=== PATIENT | female | born 1975 | race Caucasian/White ===

== ENCOUNTER → 2020-07-12 | Outpatient (CLI) | payer OTHER ==
[2020-07-12 16:21] LABS: BASO # 0.1 10^3/uL (0.0-0.2); BASO % 0.5 % (0.0-1.0); EOS # 0.1 10^3/uL (0.0-0.5); HEMATOCRIT 44.9 % (36.0-47.0); HEMOGLOBIN 15.2 g/dl (12.0-15.5); LYMPH # 3.4 10^3/uL (1.5-5.0); LYMPH % 25.8 % (24.0-44.0); MEAN CORPUSCULAR HEMOGLOBIN 30.7 pg (27.0-33.0); MEAN CORPUSCULAR HGB CONC 33.9 g/dl (32.0-36.5); MEAN CORPUSCULAR VOLUME 90.7 fl (80.0-96.0); MONO # 1.3 10^3/uL (0.0-0.8); MONO % 9.7 % (0.0-5.0); NEUTROPHILS # 8.2 10^3/uL (1.5-8.5); NEUTROPHILS % 62.6 % (36.0-66.0); PLATELET COUNT, AUTOMATED 414 10^3/uL (150-450); RED BLOOD COUNT 4.95 10^6/uL (4.00-5.40); WHITE BLOOD COUNT 13.1 10^3/uL (4.0-10.0)
[2020-07-12 17:06] LABS: ALBUMIN 3.5 GM/DL (3.2-5.2); ALT/SGPT 39 U/L (12-78); BILIRUBIN,TOTAL 0.4 MG/DL (0.2-1.0); BLOOD UREA NITROGEN 10 MG/DL (7-18); CALCIUM LEVEL 9.2 MG/DL (8.5-10.1); CARBON DIOXIDE LEVEL 28 MEQ/L (21-32); CHLORIDE LEVEL 104 MEQ/L (98-107); CK-MB VALUE MASS 1.7 NG/ML (<3.6); CPK CREATINE PHOSPHOKINASE 260 U/L (26-192); CREATININE FOR GFR 0.69 MG/DL (0.55-1.30); FREE T4 0.86 NG/DL (0.76-1.46); GLOMERULAR FILTRATION RATE > 60.0 (>58); GLUCOSE, FASTING 157 MG/DL (70-100); MB/CK RELATIVE INDEX 0.65 (< OR =4); POTASSIUM SERUM 4.6 MEQ/L (3.5-5.1); SODIUM LEVEL 138 MEQ/L (136-145); TOTAL PROTEIN 7.4 GM/DL (6.4-8.2); TROPONIN I < 0.02 NG/ML (< 0.10)
[2020-07-12 22:23] LABS: HEMOGLOBIN A1c 7.3 %
--- NOTE | 2020-09-07 11:21 | REP ---
INDICATION: CHEST PAIN, DIZZINES, GIDDINESS AND OTHER FATIGUE COMPARISON: None. TECHNIQUE: PA and lateral. FINDINGS: The mediastinum and cardiac silhouette are normal. The lung garcia are clear and without acute consolidation, effusion, or pneumothorax. The skeletal structures are intact and normal. IMPRESSION: No acute cardiopulmonary process. <Electronically signed by Damion Medrano > 09/07/20 [id number]
== END ==
LOC: M WUC 14:15
PROVIDERS: ATTEND Physician Assistant
DX: R07.9 Chest pain, unspecified (principal); R42 Dizziness and giddiness; R53.83 Other fatigue

== ENCOUNTER → 2020-11-02 | Outpatient (REF) | payer OTHER ==
[2020-11-02 20:17] LABS: ALBUMIN 3.5 GM/DL (3.2-5.2); ALT/SGPT 49 U/L (12-78); BILIRUBIN,TOTAL 0.2 MG/DL (0.2-1.0); BLOOD UREA NITROGEN 14 MG/DL (7-18); CALCIUM LEVEL 8.9 MG/DL (8.5-10.1); CARBON DIOXIDE LEVEL 33 MEQ/L (21-32); CHLORIDE LEVEL 98 MEQ/L (98-107); CHOLESTEROL LEVEL 232 MG/DL (<200); CHOLESTEROL RISK RATIO 5.948 (<5); CREATININE FOR GFR 0.71 MG/DL (0.55-1.30); GLOMERULAR FILTRATION RATE > 60.0 (>58); GLUCOSE, FASTING 201 MG/DL (70-100); HDL CHOLESTEROL 39 MG/DL (>40); NON-HDL-C 193 MG/DL; POTASSIUM SERUM 4.8 MEQ/L (3.5-5.1); SODIUM LEVEL 135 MEQ/L (136-145); TOTAL PROTEIN 7.3 GM/DL (6.4-8.2); TRIGLYCERIDES LEVEL 805 MG/DL (<150)
== END ==
LOC: M LAB REF 19:06
PROVIDERS: ATTEND Family Medicine Addiction Medicine
DX: Z00.00 Encounter for general adult medical examination without abnormal findings (principal); E07.9 Disorder of thyroid, unspecified

== ENCOUNTER → 2020-11-06 | Outpatient (REF) | payer OTHER | LOC: M WUC 10:03 | PROVIDERS: ATTEND Physician Assistant | DX: J02.9 Acute pharyngitis, unspecified (principal) ==

== ENCOUNTER 2020-11-22 10:12 | Inpatient (IN) | payer OTHER ==
[~2020-11-22] VITALS: Ht 162.6 cm; Wt 93.4 kg
[2020-11-22] MEDS ORDERED: PREG100C PO (10:37)
[2020-11-22] MEDS ORDERED: APPL300T4 PO (10:37)
[2020-11-22] MEDS ORDERED: OXYC-517 PO (10:37)
[2020-11-22] MEDS ORDERED: ONETAB35 PO (10:37)
[2020-11-22] MEDS ORDERED: NS 1,000 ML IV ONE ×2 (11:45→14:00)
[2020-11-22 12:31] LABS: BASO # 0.1 10^3/uL (0.0-0.2); BASO % 0.8 % (0.0-1.0); EOS # 0.1 10^3/uL (0.0-0.5); EOS % 1.1 % (0.0-3.0); HEMATOCRIT 44.8 % (36.0-47.0); HEMOGLOBIN 15.3 g/dl (12.0-15.5); LYMPH # 3.6 10^3/uL (1.5-5.0); MEAN CORPUSCULAR HEMOGLOBIN 29.8 pg (27.0-33.0); MEAN CORPUSCULAR HGB CONC 34.2 g/dl (32.0-36.5); MEAN CORPUSCULAR VOLUME 87.2 fl (80.0-96.0); MONO # 0.9 10^3/uL (0.0-0.8); MONO % 8.3 % (0.0-5.0); NEUTROPHILS # 5.9 10^3/uL (1.5-8.5); NEUTROPHILS % 55.4 % (36.0-66.0); PLATELET COUNT, AUTOMATED 375 10^3/uL (150-450); RED BLOOD COUNT 5.14 10^6/uL (4.00-5.40); WHITE BLOOD COUNT 10.6 10^3/uL (4.0-10.0)
[2020-11-22 12:57] LABS: RSV AMPLIFICATION NEGATIVE (NEGATIVE)
[2020-11-22 12:59] LABS: ALBUMIN 3.9 GM/DL (3.2-5.2); ALT/SGPT 81 U/L (12-78); BILIRUBIN,DIRECT 0.1 MG/DL (0.0-0.2); BILIRUBIN,TOTAL 0.6 MG/DL (0.2-1.0); BLOOD UREA NITROGEN 13 MG/DL (7-18); CALCIUM LEVEL 9.6 MG/DL (8.5-10.1); CARBON DIOXIDE LEVEL 27 MEQ/L (21-32); CHLORIDE LEVEL 98 MEQ/L (98-107); CK-MB VALUE MASS < 1.0 NG/ML (<3.6); CPK CREATINE PHOSPHOKINASE 97 U/L (26-192); CREATININE FOR GFR 0.86 MG/DL (0.55-1.30); GLOMERULAR FILTRATION RATE > 60.0 (>58); GLUCOSE, FASTING 482 MG/DL (70-100); LIPASE 178 U/L (73-393); MB/CK RELATIVE INDEX 1.03 (< OR =4); POTASSIUM SERUM 4.1 MEQ/L (3.5-5.1); SODIUM LEVEL 132 MEQ/L (136-145); TROPONIN I < 0.02 NG/ML (< 0.10)
[2020-11-22] MEDS ORDERED: ISOVUE-370 76% 100ML VIAL As Ordered ONE (13:15)
--- NOTE | 2020-11-22 13:38 | REP ---
INDICATION: Abdominal Pain COMPARISON: 07/12/2020 TECHNIQUE: PA and lateral. FINDINGS: The mediastinum and cardiac silhouette are normal. Small area of linear platelike atelectasis in the left mid lung zone versus scarring requires correlation. No further consolidation, effusion, or pneumothorax. Skeletal structures intact. IMPRESSION: Questionable area of linear atelectasis versus scarring in the left mid lung zone. No further significant consolidation or effusion. <Electronically signed by Damion Medrano > 11/22/20 [id number]
[2020-11-22 13:40] LABS: FREE T4 1.16 NG/DL (0.76-1.46)
[2020-11-22 13:43] LABS: HEMOGLOBIN A1c 12.1 %
--- NOTE | 2020-11-22 13:58 | REP ---
INDICATION: diffuse abd pain. COMPARISON: None TECHNIQUE: Axial contrast-enhanced images from the lung bases to the pubic symphysis using 100 cc Isovue 370 intravenous contrast material. Coronal and sagittal reformations obtained. This CT examination was performed using the following dose reduction techniques: Automated exposure control, adjustment of mA and/or kv according to the patient's size, and the use of iterative reconstruction technique. FINDINGS: Marked hepatomegaly and diffuse hepatosteatosis is appreciated without focal hepatic lesion identified. 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 Pancreas, gallbladder, bilateral adrenal glands and kidneys are normal. The enteric system including stomach, small, and large bowel appears normal. No evidence for obstruction or acute inflammatory process. Normal terminal ileum and appendix are identified in the right lower quadrant. Few scattered sigmoid diverticula noted without acute diverticulitis. Pelvis demonstrates normal bladder and evidence for prior hysterectomy. No ascites. No free air. No intraperitoneal or retroperitoneal adenopathy. Abdominal aorta and vasculature appear normal. Musculoskeletal structures are intact and without acute osseous abnormality. Few left inguinal lymph nodes are prominent and measure up to 22 mm. IMPRESSION: 1. Marked hepatomegaly and hepatosteatosis without focal liver lesion. 2. Two prominent lymph nodes in the left groin are nonspecific. 3. No further acute abdominopelvic pathology appreciated. No ascites, focal inflammatory stranding, or free air. <Electronically signed by Damion Medrano > 11/22/20 [id number]
[2020-11-22] MEDS ORDERED: HumuLIN R (REGULAR) INSULIN (NovoLIN R) **100U/ML** PER UNIT IV ONE (14:00)
[2020-11-22 14:04] LABS: AMPHETAMINES LEVEL URINE NEGATIVE (NEGATIVE); BARBITURATES URINE NEGATIVE (NEGATIVE); BENZODIAZEPINES URINE NEGATIVE (NEGATIVE); CANNABINOIDS URINE NEGATIVE (NEGATIVE); COCAINE METABOLITE URINE NEGATIVE (NEGATIVE); METHADONE URINE NEGATIVE (NEGATIVE); OPIATES URINE NEGATIVE (NEGATIVE); PHENCYCLIDINE URINE NEGATIVE (NEGATIVE)
[2020-11-22 15:38] LABS: VENOUS BASE EXCESS -2.9 (-2.0-2.0); VENOUS HCO3 19.5 MEQ/L (23.0-27.0); VENOUS O2 SATURATION 98.9 % (60.0-80.0); VENOUS PARTIAL PRESSURE CO2 28.4 mmHg (38.0-50.0); VENOUS PARTIAL PRESSURE O2 146.4 mmHg (30.0-50.0); VENOUS PH 7.455 UNITS (7.330-7.430); VENOUS STANDARD HCO3 22.1 MEQ/L; VENOUS TOTAL CO2 20.4 MEQ/L (24.0-28.0)
[2020-11-22 15:59] LABS: ACETONE/KETONE 1.78 MG/DL (<2.81)
[2020-11-22] MEDS ORDERED: PANT-23 PO (16:09)
[2020-11-22] MEDS ORDERED: ATOR40TA75 PO (16:09)
[2020-11-22] MEDS ORDERED: IBUP1TAB6 PO (16:09)
[2020-11-22] MEDS ORDERED: GLUCOSE 4GM CHEW TABLET PO PRN (17:00)
[2020-11-22] MEDS ORDERED: DEXTROSE 50% 50 ML SYRINGE IV PRN (17:00)
[2020-11-22] MEDS ORDERED: GLUCAGON INJ 1MG VIAL SC PRN (17:00)
[2020-11-22] MEDS: LR 1,000 ML IV SCH ×2 (17:26→22:27)
--- NOTE | 2020-11-22 17:42 | ECGEPIP ---
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
--- NOTE | 2020-11-22 18:02 | HPE ---
HISTORY AND PHYSICAL DATE OF ADMISSION: 11/22/2020 PRINCIPAL DIAGNOSIS: Type 2 diabetes with dehydration. HISTORY: Nunu Barnhart is a 45-year-old patient who is a patient of Chintan Chou MD, at [facility]. She was actually diagnosed with type 2 diabetes on 07/12/20. She had an A1c of 7.3% and a fasting blood sugar of 157, which would establish a diagnosis of type 2 diabetes. She claims to be unaware of this diagnosis. She presented to the emergency room with polyuria, polydipsia, fatigue, dizziness, and visual disturbance. Her random blood sugar was 482 and hemoglobin A1c has gone from 7.3 in June up to 12.1%. She has a mild lactic acidemia, 2.4. She is not in DKA. Her bicarbonate is normal. Her blood gas is unremarkable. Serum ketones are normal. PAST MEDICAL HISTORY: 1. Hyperlipidemia. 2. Post-traumatic stress disorder. 3. Fibromyalgia. 4. Chronic pain syndrome. 5. Gastroesophageal reflux disease. 6. She had several hospitalizations when she was living [place] and I do not have access to those records. She states that she was admitted for pneumonia, abdominal pain, and then admitted for COVID-19 infection in March that manifested primarily through pneumonia. SOCIAL HISTORY: She is unmarried, smokes pack of cigarettes a day, denies any alcohol use. FAMILY HISTORY: She is adopted and does not know her medical history. MEDICATIONS: 1. Atorvastatin 40 mg daily. 2. Folic acid with multivitamin one daily. 3. Ibuprofen p.r.n. 4. Oxycodone 5 mg t.i.d. 5. Lyrica 100 mg t.i.d. 6. Protonix 40 mg daily. ALLERGIES: SULFA. REVIEW OF SYSTEMS: As above, otherwise negative. PHYSICAL EXAMINATION: VITAL SIGNS: 133/71, pulse 83, respiratory rate 18, 02 saturation 97%, temperature 97.2 degrees. GENERAL APPEARANCE: Well-developed, well-nourished, obese, resting comfortably in bed. HEENT: Pupils equal and reactive to light; unremarkable with the limits of mask. NECK: Supple. Thyroid is mildly enlarged, no dominant nodule. LUNGS: Clear. HEART: Regular rhythm without murmur. ABDOMEN: Soft, obese, nontender, no masses. EXTREMITIES: No clubbing, cyanosis, or edema. Normal strength in the arms and the legs. LABORATORY: Ketones are normal. Toxicology screen is negative. Sodium 132 (corrects to normal for hyperglycemia), potassium 4.1, BUN 13, creatinine 0.8, random glucose 482, hemoglobin A1c 12.1%, lactic acid 2.4. Thyroid function test 1.5, free T4 1.1. Lipase normal. White count 10.1, hemoglobin 15, platelets 370. ABG 7.45/28/146. Urinalysis showed 3+ glucose. COVID test is negative. IMPRESSION: 1. Newly diagnosed type 2 diabetes. She has actually had diabetes since at least June of 2020 but it has been untreated. She will be admitted to a medical floor, rehydrated, started on sliding scale insulin coverage with a dose of basal insulin at bedtime. Once her pancreas has recovered, she could start oral agent, either while in the hospital or as an outpatient. Metformin will be the typical first choice. We discussed that she will probably need insulin therapy for several months while her pancreas recovers from this severe hyperglycemia, then, potentially her primary care provider could transition her to an oral regimen. Consistent carbohydrate diet ordered. IV fluids ordered for hydration. 2. Fatty liver. CTA today showed marked fatty liver. Continue her atorvastatin. Of course, the weight loss was discussed. 3. Tobacco abuse. Smoking cessation was discussed with the patient. 4. Chronic pain syndrome. Continue her current regimen.
[2020-11-22] MEDS: HumaLOG INSULIN (NovoLOG) PER UNIT SC SCH ×2 (18:03→22:27)
[2020-11-22] MEDS: PERCOCET 5MG/325MG TAB PO PRN (20:13)
[2020-11-22 21:50] VITALS: BP 164/91
[2020-11-22] MEDS: PREGABALIN 100 MG CAP (LYRICA) PO SCH (22:26)
[2020-11-22] MEDS: LEVEMIR (INSULIN DETEMIR) 1 UNITS/0.01ML SC SCH (22:27)
[2020-11-23 02:00] VITALS: BP 128/67
[2020-11-23] MEDS: LR 1,000 ML IV SCH (04:32)
[2020-11-23 06:00] VITALS: BP 124/84
[2020-11-23 07:22] LABS: HEMOGLOBIN 13.4 g/dl (12.0-15.5); MEAN CORPUSCULAR HEMOGLOBIN 29.6 pg (27.0-33.0); MEAN CORPUSCULAR HGB CONC 33.5 g/dl (32.0-36.5); MEAN CORPUSCULAR VOLUME 88.5 fl (80.0-96.0); PLATELET COUNT, AUTOMATED 329 10^3/uL (150-450); RED BLOOD COUNT 4.52 10^6/uL (4.00-5.40); WHITE BLOOD COUNT 9.9 10^3/uL (4.0-10.0)
[2020-11-23 07:43] LABS: BLOOD UREA NITROGEN 11 MG/DL (7-18); CALCIUM LEVEL 8.5 MG/DL (8.5-10.1); CARBON DIOXIDE LEVEL 28 MEQ/L (21-32); CHLORIDE LEVEL 105 MEQ/L (98-107); CREATININE FOR GFR 0.63 MG/DL (0.55-1.30); GLOMERULAR FILTRATION RATE > 60.0 (>58); GLUCOSE, FASTING 262 MG/DL (70-100); POTASSIUM SERUM 3.9 MEQ/L (3.5-5.1); SODIUM LEVEL 138 MEQ/L (136-145)
[2020-11-23] MEDS: HumaLOG INSULIN (NovoLOG) PER UNIT SC SCH ×4 (08:51→20:29)
[2020-11-23] MEDS: PREGABALIN 100 MG CAP (LYRICA) PO SCH ×3 (08:51→20:28)
[2020-11-23] MEDS: PANTOPRAZOLE 40MG TAB (PROTONIX) PO SCH (08:51)
[2020-11-23] MEDS: ATORVASTATIN 20 MG TAB PO SCH (08:52)
[2020-11-23] MEDS: PERCOCET 5MG/325MG TAB PO PRN ×2 (08:52→15:12)
[2020-11-23] MEDS: ENOXAPARIN 40MG/0.4ML SYRINGE (J1650 PER 10MG) SC SCH (08:52)
[2020-11-23 10:00] VITALS: BP 163/87
--- NOTE | 2020-11-23 11:06 | IPN ---
PROGRESS NOTE DATE: 11/23/2020 SUBJECTIVE: Nunu is seen in [address] [facility]. She was admitted with diabetes out of control. She is responding well to insulin therapy. She is currently receiving diabetic teaching. She feels much better than she did yesterday. Her p.o. intake is fine. I am stopping her IV fluids today. OBJECTIVE: VITAL SIGNS: Stable. LUNGS: Clear. HEART: Rhythm regular. ABDOMEN: Soft and nontender. EXTREMITIES: No peripheral edema. LABORATORY DATA: Blood sugar is in the mid 200s now. Electrolytes unremarkable. CBC unremarkable. IMPRESSION/PLAN: 1. Diabetes, newly diagnosed. She had a hemoglobin A1c and fasting blood sugar that met diagnostic criteria 07/12/2020, but she was not made aware of this; so now, she has out of control diabetes with a hemoglobin A1c of 12%. She will need insulin therapy upon discharge. We will start metformin 500 mg b.i.d. to complement her insulin. Continue basal insulin 10 units at bedtime and sliding scale insulin before meals and at bedtime. She will be stable for discharge tomorrow. 2. Hyperlipidemia. Continue atorvastatin 40 mg daily. 3. Chronic pain syndrome. Continue her oxycodone and Lyrica. Anticipate discharge tomorrow. Nursing staff made aware and will work on diabetic teaching today.
[2020-11-23] MEDS: metFORMIN (GLUCOPHAGE) 500 MG TAB PO SCH ×2 (12:17→17:27)
[2020-11-23 14:00] VITALS: BP 125/68
[2020-11-23] MEDS ORDERED: FLUCONAZOLE 50MG TABLET PO ONE (15:00)
[2020-11-23 18:00] VITALS: BP 129/70
[2020-11-23] MEDS: LEVEMIR (INSULIN DETEMIR) 1 UNITS/0.01ML SC SCH (20:29)
[2020-11-23 22:00] VITALS: BP 130/89
[2020-11-24 02:00] VITALS: BP 140/86
[2020-11-24] MEDS: PERCOCET 5MG/325MG TAB PO PRN ×2 (02:16→08:56)
[2020-11-24 06:00] VITALS: BP 136/78
[2020-11-24 07:07] LABS: HEMATOCRIT 39.5 % (36.0-47.0); HEMOGLOBIN 13.1 g/dl (12.0-15.5); MEAN CORPUSCULAR HEMOGLOBIN 29.4 pg (27.0-33.0); MEAN CORPUSCULAR HGB CONC 33.2 g/dl (32.0-36.5); MEAN CORPUSCULAR VOLUME 88.8 fl (80.0-96.0); PLATELET COUNT, AUTOMATED 313 10^3/uL (150-450); RED BLOOD COUNT 4.45 10^6/uL (4.00-5.40); WHITE BLOOD COUNT 10.5 10^3/uL (4.0-10.0)
[2020-11-24 07:34] LABS: BLOOD UREA NITROGEN 11 MG/DL (7-18); CALCIUM LEVEL 8.5 MG/DL (8.5-10.1); CARBON DIOXIDE LEVEL 30 MEQ/L (21-32); CHLORIDE LEVEL 103 MEQ/L (98-107); CREATININE FOR GFR 0.69 MG/DL (0.55-1.30); GLOMERULAR FILTRATION RATE > 60.0 (>58); GLUCOSE, FASTING 225 MG/DL (70-100); POTASSIUM SERUM 4.3 MEQ/L (3.5-5.1); SODIUM LEVEL 138 MEQ/L (136-145)
[2020-11-24] MEDS: metFORMIN (GLUCOPHAGE) 500 MG TAB PO SCH (08:55)
[2020-11-24] MEDS: ENOXAPARIN 40MG/0.4ML SYRINGE (J1650 PER 10MG) SC SCH (08:55)
[2020-11-24] MEDS: PREGABALIN 100 MG CAP (LYRICA) PO SCH (08:56)
[2020-11-24] MEDS: PANTOPRAZOLE 40MG TAB (PROTONIX) PO SCH (08:56)
[2020-11-24] MEDS: ATORVASTATIN 20 MG TAB PO SCH (08:57)
[2020-11-24] MEDS: HumaLOG INSULIN (NovoLOG) PER UNIT SC SCH ×2 (08:58→13:08)
[2020-11-24] MEDS ORDERED: GLUC500T PO (09:19)
[2020-11-24] MEDS ORDERED: INSUHUMDS SC ×2 (09:19)
[2020-11-24] MEDS ORDERED: INSUDET SC (09:19)
[2020-11-24 10:00] VITALS: BP 137/79
[2020-11-24] MEDS ORDERED: PEN1MIS22 SC (10:25)
[2020-11-24] MEDS ORDERED: ALCOPAD25 TOP (10:25)
[2020-11-24] MEDS ORDERED: BLOOKIT21 XX (10:25)
[2020-11-24] MEDS ORDERED: LANC30MI XX (10:25)
[2020-11-24] MEDS ORDERED: GLUC1TES2 XX (10:25)
[2020-11-24] MEDS ORDERED: LEVE1INJ5 SC (10:26)
[2020-11-24] MEDS ORDERED: INSU100I20 SQ (10:26)
[2020-11-24] MEDS ORDERED: RA A EX (10:33)
[2020-11-24] MEDS ORDERED: BASA100I SC (12:43)
[2020-11-24 14:00] VITALS: BP 130/87
[2020-11-24] MEDS ORDERED: NYSTATIN CREAM 15 GM TOP PRN (14:00)
--- NOTE | 2020-11-25 22:47 | DS.PDOC ---
Discharge Summary General Date of Admission Nov 22, 2020 at 16:54 Date of Discharge Nov 24, 2020 Attending Physician: NATALI SUÁREZ DO Discharge Summary PROCEDURES PERFORMED DURING STAY: None ADMITTING DIAGNOSES: 1. Newly diagnosed diabetes mellitus 2. Fatty liver 3. Tobacco abuse 4. Chronic pain syndrome DISCHARGE DIAGNOSES: 1. Newly diagnosed diabetes mellitus 2. Fatty liver 3. Tobacco abuse 4. Chronic pain syndrome COMPLICATIONS/CHIEF COMPLAINT: Diabetes Mellitus Out Of Control.. HISTORY OF PRESENT ILLNESS: Ms. Barnhart is a 45 year old female with PTSD, fibromyalgia, GERD, and chronic pain syndrome who presents for polyuria, polydipsia, fatigue, dizziness, and visual disturbance. Her random blood sugar was 482, but she was not in DKA. Bicarb and ketones are normal. Blood gas was not acidotic. Her lactic acid was elevated at 2.4. HbA1c increased from 7.3% in June to 12.1%. Patient was admitted for hydration and diabetes control. HOSPITAL COURSE: She did well during her hospitalization. Her lactic acid resolved and her blood sugar improved. She was given diabetic education for insulin. She was started on metformin. Today, she felt well. She was still anxious about using insulin and becoming hypoglycemic. Otherwise, she felt ready for discharge and was discharged home. DISCHARGE MEDICATIONS: Please see below. ALLERGIES: Please see below. PHYSICAL EXAMINATION ON DISCHARGE: VITAL SIGNS: Please see below. GENERAL: Comfortable, in no apparent distress HEENT: Head normocephalic, atraumatic, EOMI, sclera clear NECK: Supple CARDIOVASCULAR EXAMINATION: Regular rate and rhythm RESPIRATORY EXAMINATION: Lungs clear to auscultation bilaterally ABDOMINAL EXAMINATION: Soft, nontender, normal bowel sounds EXTREMITIES: No pitting edema bilaterally SKIN: Warm and dry NEUROLOGICAL EXAMINATION: CN 3-12 grossly intact PSYCHIATRIC EXAMINATION: Anxious LABORATORY DATA: Please see below. IMAGING: (Radiologist impression) CT abd/pelvis 11/22/20 1. Marked hepatomegaly and hepatosteatosis without focal liver lesion. 2. Two prominent lymph nodes in the left groin are nonspecific. 3. No further acute abdominopelvic pathology appreciated. No ascites, focal inflammatory stranding, or free air. CXR 11/22/20 Questionable area of linear atelectasis versus scarring in the left mid lung zone. No further significant consolidation or effusion. PROGNOSIS: Good ACTIVITY: As tolerated. DIET: Carbohydrate consistent diet DISCHARGE PLAN: Home DISPOSITION: 01 Home, Self-Care. DISCHARGE INSTRUCTIONS: 1. Follow up with your PCP within 5 days DISCHARGE CONDITION: Stable. Total time spent on discharge planning, discharge summary, and medication reconciliation: 40 minutes. Vital Signs/I&Os Vital Signs Date Time Temp Pulse Resp B/P (MAP) Pulse Ox O2 Delivery O2 Flow Rate FiO2 11/24/20 14:00 98.6 80 17 130/87 (101) 98 Room Air I&O- Last 24 Hours up to 6 AM 11/25/20 06:00 Intake Total 900 ml Output Total 0 ml Balance 900 ml Discharge Medications Scheduled Atorvastatin Calcium (Atorvastatin Calcium) 40 Mg Tablet, 40 MG PO DAILY, (Reported) Blood Sugar Diagnostic (Advanced Glucose Test Strips) 1 Each Strip, 1 STRIP XX ASDIRECTED Clotrimazole (Clotrimazole AF) 28 Gm Cream..g., 1 % EX BID Apply to affected area Insulin Glargine,Hum.rec.anlog (Basaglar Kwikpen U-100) 100 Unit/1 Ml Insuln.pen, 10 UNIT SC QHS Insulin Lispro (Insulin Lispro Jameson Kwikpen) 100 Unit/Ml Ins.pen.hf, 1 UNIT SQ ACHS Follow Sliding Scale protocol Metformin HCl (Glucophage) 500 Mg Tablet, 500 MG PO BID@08,18 Oxycodone HCl (Oxycodone HCl) 5 Mg Tablet, 5 TAB PO TID, (Reported) Pantoprazole Sodium (Pantoprazole Sodium) 40 Mg Tablet.dr, 40 MG PO DAILY, (Reported) Pregabalin (Pregabalin) 100 Mg Capsule, 100 MG PO TID, (Reported) Scheduled PRN Ibuprofen (Ibuprofen) 600 Mg Tablet, 600 MG PO Q8H PRN for PAIN, (Reported) Miscellaneous Medications Cider Vinegar (Apple Cider Vinegar) 300 Mg Tablet, 300 MG PO, (Reported) Folic Acid/Multivit,Iron,[employer] (One Daily For Women Tablet) 1 Each Tablet, 1 TAB PO, (Reported) Allergies Coded Allergies: Sulfa (Sulfonamide Antibiotics) (Verified Adverse Reaction, Intermediate, "Im on fire on the inside", 11/22/20) NATALI SUÁREZ DO Nov 25, 2020 22:47
== END 2020-11-24 15:10 | disposition home or self-care (01) | DRG 420 ==
LOC: M ED 10:12 → M ED INP 16:54 → M MS5PR 21:44
PROVIDERS: ADMIT Family Medicine; ATTEND Internal Medicine
DX: E11.65 Type 2 diabetes mellitus with hyperglycemia (principal); E78.5 Hyperlipidemia, unspecified; F17.200 Nicotine dependence, unspecified, uncomplicated; G89.29 Other chronic pain; K21.9 Gastro-esophageal reflux disease without esophagitis; M79.7 Fibromyalgia; F43.10 Post-traumatic stress disorder, unspecified; Z79.899 Other long term (current) drug therapy; Z79.4 Long term (current) use of insulin; Z88.2 Allergy status to sulfonamides

== ENCOUNTER → 2020-11-28 | Outpatient (REF) | payer OTHER ==
[~2020-11-28] MED LIST: ALCOPAD25 TOP; APPL300T4 PO; ATOR40TA75 PO; BASA100I SC; BLOOKIT21 XX; GLUC1TES2 XX; GLUC500T PO; IBUP1TAB6 PO; INSU100I20 SQ; INSUDET SC; INSUHUMDS SC; LANC30MI XX; LEVE1INJ5 SC; ONETAB35 PO; OXYC-517 PO; PANT-23 PO; PEN1MIS22 SC; PREG100C PO; RA A EX
== END ==
LOC: M LAB REF 16:49
PROVIDERS: ATTEND Family Medicine Addiction Medicine
DX: E55.9 Vitamin D deficiency, unspecified (principal)

== ENCOUNTER 2021-01-19 19:40 | Emergency (ER) | payer OTHER ==
[~2021-01-19] VITALS: Ht 162.6 cm; Wt 97.2 kg
[2021-01-19] MEDS ORDERED: HYDR-3713 (20:04)
[2021-01-19] MEDS ORDERED: PERI12LIQ (20:05)
[2021-01-19] MEDS ORDERED: FARX1TAB3 (20:05)
[2021-01-19] MEDS ORDERED: ONDANSETRON 4MG/2ML VIAL IV ONE (21:10)
[2021-01-19] MEDS ORDERED: MORPHINE 4 MG/ML 1ML VIAL/SYRINGE (J2270) IV ONE ×2 (21:10→22:45)
[2021-01-19] MEDS ORDERED: NS 1,000 ML IV ONE ×2 (21:10→22:45)
[2021-01-19 21:56] LABS: BASO # 0.1 10^3/uL (0.0-0.2); BASO % 0.7 % (0.0-1.0); EOS # 0.2 10^3/uL (0.0-0.5); EOS % 1.2 % (0.0-3.0); HEMATOCRIT 47.6 % (36.0-47.0); HEMOGLOBIN 15.4 g/dl (12.0-15.5); LYMPH # 4.4 10^3/uL (1.5-5.0); LYMPH % 25.1 % (24.0-44.0); MEAN CORPUSCULAR HEMOGLOBIN 29.2 pg (27.0-33.0); MEAN CORPUSCULAR HGB CONC 32.4 g/dl (32.0-36.5); MEAN CORPUSCULAR VOLUME 90.2 fl (80.0-96.0); MONO # 1.6 10^3/uL (0.0-0.8); MONO % 9.3 % (2.0-8.0); NEUTROPHILS # 11.2 10^3/uL (1.5-8.5); NEUTROPHILS % 63.2 % (36.0-66.0); PLATELET COUNT, AUTOMATED 561 10^3/uL (150-450); RED BLOOD COUNT 5.28 10^6/uL (4.00-5.40)
[2021-01-19] MEDS ORDERED: ISOVUE-370 76% 100ML VIAL As Ordered ONE (22:01)
[2021-01-19 22:11] LABS: WHITE BLOOD COUNT 17.6 10^3/uL (4.0-10.0)
[2021-01-19 22:29] LABS: ERYTHROCYTE SEDIMENTATION RATE 18 mm/hr (0-20)
--- NOTE | 2021-01-19 22:35 | REPVR ---
PROCEDURE INFORMATION: Exam: CT Neck With Contrast Exam date and time: 01/19/2021 10:12 PM Age: 46 years old Clinical indication: Pain; Other: Jaw; Additional info: Severe lower jaw pain, 1wk post tooth extraction TECHNIQUE: Imaging protocol: Computed tomography images of the neck with intravenous contrast. Radiation optimization: All CT scans at this facility use at least one of these dose optimization techniques: automated exposure control; mA and/or kV adjustment per patient size (includes targeted exams where dose is matched to clinical indication); or iterative reconstruction. Contrast material: ISOVUE 370; Contrast volume: 75 ml; Contrast route: INTRAVENOUS (IV); COMPARISON: No relevant prior studies available. FINDINGS: Nasopharynx: Unremarkable. Dental: Findings consistent with the history of recent extraction of 2nd mandibular molar tooth on the left. Oropharynx: Unremarkable. No significant tonsillar enlargement. Hypopharynx: Unremarkable. Larynx: Unremarkable. Normal epiglottis. Retropharyngeal space: Unremarkable. Submandibular/Parotid glands: Normal. Glands are normal in size. Thyroid: Normal. No enlarged or calcified nodules. Lymph nodes: Cervical lymph nodes within normal limits. Slight asymmetric enlargement of the left submandibular nodes, likely reactive. Trachea: Visualized trachea is unremarkable. Lungs: Unremarkable as visualized. Bones/joints: Cervical spinal spondylitic changes at the C5-C6 and C6-C7 levels. Cervical facet arthropathy noted. No destructive osseous lesions are seen. Soft tissues: No soft tissue abscess is seen. IMPRESSION: 1. Findings consistent with recent left mandibular molar extraction. 2. No soft tissue abscess or destructive osseous lesion identified. 3. Slight asymmetric enlargement of the left submandibular nodes, likely reactive. Electronically signed by: Emma Bond On 01/19/2021 22:35:20 PM
[2021-01-20] MEDS ORDERED: MORPHINE 2 MG/ML 1ML VIAL (J2270) IV ONE
[2021-01-20] MEDS ORDERED: PERCOCET 5MG/325MG TAB PO ONE
[2021-01-20 00:50] LABS: BASO # 0.1 10^3/uL (0.0-0.2); BASO % 0.5 % (0.0-1.0); EOS # 0.2 10^3/uL (0.0-0.5); EOS % 1.3 % (0.0-3.0); HEMATOCRIT 45.6 % (36.0-47.0); HEMOGLOBIN 14.5 g/dl (12.0-15.5); LYMPH # 4.9 10^3/uL (1.5-5.0); LYMPH % 26.7 % (24.0-44.0); MEAN CORPUSCULAR HEMOGLOBIN 29.1 pg (27.0-33.0); MEAN CORPUSCULAR HGB CONC 31.8 g/dl (32.0-36.5); MEAN CORPUSCULAR VOLUME 91.6 fl (80.0-96.0); MONO # 1.7 10^3/uL (0.0-0.8); MONO % 9.2 % (2.0-8.0); NEUTROPHILS # 11.3 10^3/uL (1.5-8.5); NEUTROPHILS % 61.8 % (36.0-66.0); PLATELET COUNT, AUTOMATED 474 10^3/uL (150-450); RED BLOOD COUNT 4.98 10^6/uL (4.00-5.40)
[2021-01-20 00:53] LABS: WHITE BLOOD COUNT 18.2 10^3/uL (4.0-10.0)
[2021-01-20] MEDS ORDERED: OXYCODONE/APAP 5MG/325MG(BULK FOR ED) 1 TABLET PO ONE (01:30)
[2021-01-20 01:50] VITALS: BP 123/67
== END 2021-01-20 01:53 | disposition home or self-care (01) ==
LOC: M ED 19:40
DX: G89.18 Other acute postprocedural pain (principal); K08.89 Other specified disorders of teeth and supporting structures; E11.9 Type 2 diabetes mellitus without complications; F17.200 Nicotine dependence, unspecified, uncomplicated; Z88.2 Allergy status to sulfonamides; Z79.899 Other long term (current) drug therapy
CPT/HCPCS: 70491; 80047; 83605; 84702; 85025; 85652; 86140; 96361; 96374; 96375; 96376; 99283; J2270; J2405; Q9967

== ENCOUNTER → 2021-01-26 | Outpatient (REF) | payer OTHER ==
[~2021-01-26] MED LIST changes: +FARX1TAB3; +HYDR-3713; +PERI12LIQ
[2021-01-26 16:54] LABS: HEMATOCRIT 47.4 % (36.0-47.0); HEMOGLOBIN 15.7 g/dl (12.0-15.5); MEAN CORPUSCULAR HGB CONC 33.1 g/dl (32.0-36.5); MEAN CORPUSCULAR VOLUME 90.6 fl (80.0-96.0); PLATELET COUNT, AUTOMATED 594 10^3/uL (150-450); RED BLOOD COUNT 5.23 10^6/uL (4.00-5.40); WHITE BLOOD COUNT 16.5 10^3/uL (4.0-10.0)
[2021-01-26 17:17] LABS: ALBUMIN 4.1 GM/DL (3.2-5.2); ALT/SGPT 55 U/L (12-78); BILIRUBIN,TOTAL 0.4 MG/DL (0.2-1.0); BLOOD UREA NITROGEN 23 MG/DL (7-18); CALCIUM LEVEL 10.1 MG/DL (8.5-10.1); CARBON DIOXIDE LEVEL 28 MEQ/L (21-32); CHLORIDE LEVEL 107 MEQ/L (98-107); CREATININE FOR GFR 0.73 MG/DL (0.55-1.30); GLOMERULAR FILTRATION RATE > 60.0 (>58); GLUCOSE, FASTING 142 MG/DL (70-100); POTASSIUM SERUM 4.6 MEQ/L (3.5-5.1); SODIUM LEVEL 141 MEQ/L (136-145); TOTAL PROTEIN 7.9 GM/DL (6.4-8.2)
== END ==
LOC: M LAB REF 16:24
PROVIDERS: ATTEND Family Medicine Addiction Medicine
DX: E11.9 Type 2 diabetes mellitus without complications (principal); D72.829 Elevated white blood cell count, unspecified

== ENCOUNTER → 2021-02-07 | Outpatient (REF) | payer OTHER | LOC: M WUC 15:42 | PROVIDERS: ATTEND Physician Assistant | DX: R30.0 Dysuria (principal) ==

== ENCOUNTER 2021-02-15 14:15 | Emergency (ER) | payer OTHER ==
[~2021-02-15] VITALS: Ht 162.6 cm; Wt 95.7 kg
[2021-02-15] MEDS ORDERED: OZEM2INJ (14:36)
[2021-02-15] MEDS ORDERED: BASA100I SC (14:36)
[2021-02-15] MEDS ORDERED: METF10004 PO (14:36)
[2021-02-15] MEDS ORDERED: D 101000 (14:36)
[2021-02-15 15:39] LABS: HEMATOCRIT 48.8 % (36.0-47.0); HEMOGLOBIN 16.3 g/dl (12.0-15.5); MEAN CORPUSCULAR HGB CONC 33.4 g/dl (32.0-36.5); MEAN CORPUSCULAR VOLUME 89.7 fl (80.0-96.0); PLATELET COUNT, AUTOMATED 531 10^3/uL (150-450); RED BLOOD COUNT 5.44 10^6/uL (4.00-5.40); WHITE BLOOD COUNT 15.5 10^3/uL (4.0-10.0)
[2021-02-15 16:14] LABS: ATYPICAL LYMPH 9 % (0-5); LYMPHOCYTES 22 % (16-44); MONOCYTES 5 % (0-5); NEUTROPHILS 63 % (28-66); PLATELET ESTIMATE INCREASED (NORMAL)
[2021-02-15 16:20] LABS: ERYTHROCYTE SEDIMENTATION RATE 34 mm/hr (0-20)
[2021-02-15] MEDS ORDERED: ONDANSETRON 4MG/2ML VIAL IV ONE (16:25)
[2021-02-15] MEDS ORDERED: dexameTHASONE 20MG/5ML VIAL (J1100 PER 1MG) IV ONE (16:25)
[2021-02-15] MEDS ORDERED: NS 1,000 ML IV ONE (16:25)
[2021-02-15] MEDS ORDERED: KETOROLAC 30 MG/ML 1ML VIAL IV ONE (16:25)
[2021-02-15] MEDS ORDERED: ISOVUE-370 76% 100ML VIAL As Ordered ONE (17:00)
[2021-02-15] MEDS ORDERED: MORPHINE 4 MG/ML 1ML VIAL/SYRINGE (J2270) IV ONE (17:25)
--- NOTE | 2021-02-15 17:35 | REPVR ---
PROCEDURE INFORMATION: Exam: CT Neck With Contrast Exam date and time: 02/15/2021 5:07 PM Age: 46 years old Clinical indication: Mass, lump, or swelling in neck; Additional info: Left jaw/neck swollen/pain TECHNIQUE: Imaging protocol: Computed tomography images of the neck with intravenous contrast. Radiation optimization: All CT scans at this facility use at least one of these dose optimization techniques: automated exposure control; mA and/or kV adjustment per patient size (includes targeted exams where dose is matched to clinical indication); or iterative reconstruction. Contrast material: ISOVUE 370; Contrast volume: 75 ml; Contrast route: INTRAVENOUS (IV); COMPARISON: CT Neck with contrast 01/19/2021 10:06 PM FINDINGS: Pharynx: Unremarkable. Dental: Redemonstration of postoperative changes compatible with recent left mandibular molar tooth extraction. No evidence of periodontal abscess. Larynx: Unremarkable. Normal epiglottis. Retropharyngeal space: Unremarkable. Submandibular/Parotid glands: Unremarkable. Thyroid: Unremarkable. No enlarged or calcified nodules. Lymph nodes: No lymphadenopathy. Trachea: Unremarkable. Lungs: Unremarkable as visualized. Bones/joints: No acute osseus lesions or fractures. Soft tissues: Unremarkable. IMPRESSION: Redemonstration of postoperative changes compatible with recent left mandibular molar tooth extraction. No evidence of periodontal abscess. Electronically signed by: Richardson Lewis On 02/15/2021 17:35:33 PM
[2021-02-15] MEDS ORDERED: AMPICILLIN SOD/SULBACTAM SOD 3 GM in D5W MINI-BAG PLUS 100 ML IV ONE (17:45)
[2021-02-15] MEDS ORDERED: KETO10TAB PO (18:22)
[2021-02-15] MEDS ORDERED: AUGM875T28 PO (18:22)
[2021-02-15] MEDS ORDERED: PRED20TA PO (18:22)
[2021-02-15] MEDS ORDERED: DIFL150T PO (18:25)
[2021-02-15 18:41] VITALS: BP 135/77
== END 2021-02-15 18:43 | disposition home or self-care (01) ==
LOC: M ED 14:15
DX: L03.211 Cellulitis of face (principal); Z98.818 Other dental procedure status; E11.9 Type 2 diabetes mellitus without complications; E78.5 Hyperlipidemia, unspecified; K52.9 Noninfective gastroenteritis and colitis, unspecified; K57.30 Diverticulosis of large intestine without perforation or abscess without bleeding; F43.10 Post-traumatic stress disorder, unspecified; F41.9 Anxiety disorder, unspecified; F31.9 Bipolar disorder, unspecified; F17.200 Nicotine dependence, unspecified, uncomplicated; Z88.2 Allergy status to sulfonamides; Z79.899 Other long term (current) drug therapy
CPT/HCPCS: 70491; 80047; 83605; 85025; 85652; 86140; 96361; 96365; 96375; 99284; J1100; J1885; J2270; J2405; Q9967

== ENCOUNTER → 2021-02-22 | Outpatient (CLI) | payer OTHER ==
[~2021-02-22] MED LIST changes: +AUGM875T28 PO; +D 101000; +DIFL150T PO; +KETO10TAB PO; +METF10004 PO; +OZEM2INJ; +PRED20TA PO
[2021-02-22 13:51] LABS: BLOOD UREA NITROGEN 19 MG/DL (7-18); CARBON DIOXIDE LEVEL 23 MEQ/L (21-32); CHLORIDE LEVEL 106 MEQ/L (98-107); CREATININE FOR GFR 0.76 MG/DL (0.55-1.30); GLOMERULAR FILTRATION RATE > 60.0 (>58); GLUCOSE, FASTING 142 MG/DL (70-100); SODIUM LEVEL 139 MEQ/L (136-145)
== END ==
LOC: M LAB 12:28
PROVIDERS: ATTEND Nurse Practitioner Family
DX: E11.65 Type 2 diabetes mellitus with hyperglycemia (principal)

== ENCOUNTER → 2021-06-23 | Outpatient (CLI) | payer OTHER ==
[~2021-06-23] MED LIST changes: +ERGO500029 PO; +FARX1TAB5 PO; +OMEP40CA5 PO
== END ==
LOC: M LABSMTC 10:36
PROVIDERS: ATTEND Anesthesiology
DX: Z01.812 Encounter for preprocedural laboratory examination (principal); Z20.822 Contact with and (suspected) exposure to COVID-19

== ENCOUNTER 2021-06-28 08:11 | Day surgery (SDC) | payer OTHER ==
[~2021-06-28] VITALS: Ht 162.6 cm; Wt 91.6 kg
[~2021-06-28 08:11] MED LIST changes: +LIDOCAINE 2% 100MG/5ML SDV (FOR ANES.) As Ordered ONE; +NS 1,000 ML IV ONE; +OMEP-221 PO; -OMEP40CA5 PO; +propofoL 200 MG/20 ML VIAL As Ordered ONE
--- NOTE | 2021-06-28 09:34 | ROOR ---
Patient Name: Nunu Barnhart Procedure Date: 06/28/2021 9:17 AM Date of : 1975 Age: 46 Room: [facility] Gender: Female Note Status: Finalized Procedure: Upper Endoscopy + Biopsies Indications: Heartburn, Exclusion of Conrad's esophagus Providers: Sang Zarco MD Referring MD: Chintan MUHAMMAD MD Requesting Provider: Medicines: Monitored Anesthesia Care Complications: No immediate complications. Procedure: Pre-Anesthesia Assessment: - The heart rate, respiratory rate, oxygen saturations, blood pressure, adequacy of pulmonary ventilation, and response to care were monitored throughout the procedure. The Endoscope was introduced through the mouth, and advanced to the second part of duodenum. The upper GI endoscopy was accomplished without difficulty. The patient tolerated the procedure well. Findings: The Z-line was variable and was found 35 cm from the incisors. Multiple biopsies were obtained with cold forceps for evaluation to rule out Conrad's Esophagus randomly at the gastroesophageal junction. A medium-sized hiatal hernia was present. No other significant abnormalities were identified in a careful examination of the stomach. The exam of the duodenum was otherwise normal. Impression: - Z-line variable, 35 cm from the incisors. - Medium-sized hiatal hernia. - Multiple biopsies were obtained at the gastroesophageal junction. - The examination was otherwise normal. Recommendation: - Patient has a contact number available for emergencies. The signs and symptoms of potential delayed complications were discussed with the patient. Return to normal activities tomorrow. Written discharge instructions were provided to the patient. - High fiber diet. - Discharge patient to home. - Follow an antireflux regimen. - Continue present medications. - Await pathology results. - Telephone GI clinic for pathology results in 1 week. - Return to referring physician. - The findings and recommendations were discussed with the patient's family. Procedure Code(s): --- Professional --- 99995, Esophagogastroduodenoscopy, flexible, transoral; with biopsy, single or multiple Diagnosis Code(s): --- Professional --- K22.8, Other specified diseases of esophagus K44.9, Diaphragmatic hernia without obstruction or gangrene R12, Heartburn CPT copyright 2019 [employer]. All rights reserved. The codes documented in this report are preliminary and upon service vehicle operator review may be revised to meet current compliance requirements. Sang Zarco MD Sang Zarco MD 06/28/2021 9:33:27 AM Electronically signed by Sang Zarco MD Number of Addenda: 0 Note Initiated On: 06/28/2021 9:17 AM Estimated Blood Loss: Estimated blood loss: none.
[2021-06-28 09:54] VITALS: BP 143/83
== END 2021-06-28 09:33 | disposition home or self-care (01) ==
LOC: M OPP 08:11
PROVIDERS: ATTEND Internal Medicine Gastroenterology
DX: K22.8 Other specified diseases of esophagus (principal); K44.9 Diaphragmatic hernia without obstruction or gangrene; R12 Heartburn; Z79.84 Long term (current) use of oral hypoglycemic drugs; Z79.891 Long term (current) use of opiate analgesic; Z79.899 Other long term (current) drug therapy; Z88.2 Allergy status to sulfonamides

== ENCOUNTER → 2021-07-07 | Outpatient (REF) | payer OTHER ==
[~2021-07-07] MED LIST changes: -LIDOCAINE 2% 100MG/5ML SDV (FOR ANES.) As Ordered ONE; -NS 1,000 ML IV ONE; -propofoL 200 MG/20 ML VIAL As Ordered ONE
[2021-07-07 18:03] LABS: CREATININE, URINE 53.3 MG/DL; MALB URINE SIEMENS 6.9 MG/L; MAU/CREAT RATIO 12.9 MCG/MG (0.0-30.0)
== END ==
LOC: M LAB REF 17:14
PROVIDERS: ATTEND Nurse Practitioner Family
DX: E11.65 Type 2 diabetes mellitus with hyperglycemia (principal)

== ENCOUNTER 2021-12-04 17:28 | Emergency (ER) | payer OTHER ==
[~2021-12-04] VITALS: Ht 162.6 cm; Wt 90.9 kg
[~2021-12-04 17:28] MED LIST changes: -OMEP-221 PO; +OMEP40CA5 PO
[2021-12-04 17:40] VITALS: BP 146/90
== END 2021-12-04 19:51 | disposition left against medical advice (07) ==
LOC: M ED 17:28
DX: Z53.21 Procedure and treatment not carried out due to patient leaving prior to being seen by health care provider (principal)

== ENCOUNTER 2021-12-04 21:47 | Emergency (ER) | payer OTHER ==
[~2021-12-04] VITALS: Ht 162.6 cm; Wt 90.9 kg
[2021-12-04 21:48] VITALS: BP 146/90
== END 2021-12-05 01:03 | disposition left against medical advice (07) ==
LOC: M ED 21:47
DX: Z53.21 Procedure and treatment not carried out due to patient leaving prior to being seen by health care provider (principal)

== ENCOUNTER → 2021-12-10 | Outpatient (REF) | payer OTHER ==
[2021-12-11 12:50] LABS: APPEARANCE, URINE TURBID (CLEAR); BACTERIA, URINE AUTO NEGATIVE (NEGATIVE); BILIRUBIN, URINE AUTO NEGATIVE (NEGATIVE); BLOOD, URINE BLOOD NEGATIVE (NEGATIVE); CALCIUM OXALATE CRYSTALS SMALL; COLOR, URINE YELLOW (YELLOW); GLUCOSE, URINE (UA) AUTO 1+ mg/dL (NEGATIVE); KETONE, URINE AUTO TRACE mg/dL (NEGATIVE); LEUKOCYTE ESTERASE, URINE AUTO NEGATIVE (NEGATIVE); MUCUS, URINE LARGE (NEGATIVE); NITRITE, URINE AUTO NEGATIVE (NEGATIVE); PROTEIN, URINE AUTO 1+ mg/dL (NEGATIVE); RBC, URINE AUTO 9 /HPF (0-3); SPECIFIC GRAVITY URINE AUTO 1.031 (1.002-1.035); SQUAMOUS EPITHELIAL CELL UR AU 3 /HPF (0-6); UROBILINOGEN, URINE AUTO 0.2 mg/dL (0.0-2.0); WBC, URINE AUTO 0 /HPF (0-3)
== END ==
LOC: M LAB REF 12:14
PROVIDERS: ATTEND Physician Assistant Medical
DX: R30.0 Dysuria (principal)

== ENCOUNTER 2022-09-05 00:18 | Observation (INO) | payer OTHER ==
[~2022-09-05] VITALS: Ht 164.5 cm; Wt 88.6 kg
[~2022-09-05 00:18] MED LIST changes: -OZEM2INJ; +OZEM2INJ SC
[2022-09-05] MEDS ORDERED: ONDANSETRON 4MG 2ML VIAL IV ONE (01:35)
[2022-09-05 01:55] LABS: BASO # 0.1 10^3/uL (0.0-0.2); BASO % 0.5 % (0.0-1.0); EOS # 0.1 10^3/uL (0.0-0.5); EOS % 0.6 % (0.0-3.0); HEMATOCRIT 42.3 % (36.0-47.0); HEMOGLOBIN 14.4 g/dl (12.0-15.5); LYMPH # 3.8 10^3/uL (1.5-5.0); LYMPH % 17.8 % (24.0-44.0); MEAN CORPUSCULAR HEMOGLOBIN 29.8 pg (27.0-33.0); MEAN CORPUSCULAR VOLUME 87.6 fl (80.0-96.0); MONO % 8.9 % (2.0-8.0); NEUTROPHILS # 15.5 10^3/uL (1.5-8.5); NEUTROPHILS % 71.8 % (36.0-66.0); PLATELET COUNT, AUTOMATED 487 10^3/uL (150-450); RED BLOOD COUNT 4.83 10^6/uL (4.00-5.40); WHITE BLOOD COUNT 21.5 10^3/uL (4.0-10.0)
[2022-09-05] MEDS ORDERED: KETOROLAC 30 MG/ML 1ML VIAL IV ONE (02:00)
[2022-09-05 02:05] LABS: MONO # 1.9 10^3/uL (0.0-0.8)
[2022-09-05 02:08] LABS: INR 0.94; PROTHROMBIN TIME 12.8 SECONDS (12.5-14.5)
[2022-09-05 02:35] LABS: ALBUMIN 3.8 GM/DL (3.2-5.2); ALT/SGPT 24 U/L (12-78); AMYLASE 32 U/L (25-115); BILIRUBIN,DIRECT < 0.1 MG/DL (0.0-0.2); BILIRUBIN,TOTAL 0.3 MG/DL (0.2-1.0); BLOOD UREA NITROGEN 18 MG/DL (7-18); CALCIUM LEVEL 9.7 MG/DL (8.5-10.1); CARBON DIOXIDE LEVEL 25 MEQ/L (21-32); CHLORIDE LEVEL 107 MEQ/L (98-107); CK-MB VALUE MASS 1.1 NG/ML (<3.6); CREATININE FOR GFR 0.78 MG/DL (0.55-1.30); GLOMERULAR FILTRATION RATE > 60.0 (>58); GLUCOSE, FASTING 128 MG/DL (70-100); LIPASE 173 U/L (73-393); MB/CK RELATIVE INDEX 1.12 (< OR =4); POTASSIUM SERUM 3.6 MEQ/L (3.5-5.1); SODIUM LEVEL 141 MEQ/L (136-145); TOTAL PROTEIN 7.5 GM/DL (6.4-8.2)
[2022-09-05] MEDS ORDERED: MORPHINE 4 MG/ML 1ML VIAL/SYRINGE IV ONE (03:20)
[2022-09-05] MEDS ORDERED: cefTRIAXone SOD 1 GM in D5W MINI-BAG PLUS 50 ML IV ONE (05:15)
[2022-09-05] MEDS ORDERED: MORPHINE 2 MG/ML 1ML VIAL IV ONE (05:15)
[2022-09-05] MEDS ORDERED: ACETAMINOPHEN TAB 650MG DOSE (2X325MG) PO PRN (06:00)
[2022-09-05] MEDS ORDERED: GLUCAGON INJ 1MG VIAL SC PRN (06:00)
[2022-09-05] MEDS ORDERED: DEXTROSE 50% 50 ML SYRINGE IV PRN (06:00)
[2022-09-05] MEDS ORDERED: GLUCOSE 4GM CHEW TABLET PO PRN (06:00)
[2022-09-05] MEDS ORDERED: ONDANSETRON 4MG TAB PO PRN (06:00)
[2022-09-05] MEDS ORDERED: CYCLOBENZAPRINE 5MG TABLET PO PRN (06:00)
[2022-09-05 06:28] LABS: RSV AMPLIFICATION NEGATIVE (NEGATIVE)
[2022-09-05] MEDS ORDERED: IBUP200T46 PO (07:49)
[2022-09-05] MEDS ORDERED: BASA100I SC (07:50)
[2022-09-05] MEDS ORDERED: METF-839 PO (07:50)
[2022-09-05] MEDS ORDERED: HOME MED LIST COMPLETE! XX SCH (08:00)
[2022-09-05] MEDS: LIDOCAINE 5% (LIDODERM) PATCH TOP SCH (08:15)
[2022-09-05] MEDS: ENOXAPARIN 40MG/0.4ML SYRINGE (J1650 PER 10MG) SC SCH (08:16)
[2022-09-05] MEDS: INSULIN LISPRO (NovoLOG) PER UNIT SC SCH ×3 (08:16→17:30)
[2022-09-05] MEDS: KETOROLAC 30 MG/ML 1ML VIAL IV PRN ×2 (08:16→16:09)
[2022-09-05] MEDS: oxyCODONE 5MG TAB PO PRN ×3 (08:16→20:09)
[2022-09-05] MEDS: PREGABALIN 100 MG CAP (LYRICA) PO SCH ×3 (08:16→20:09)
[2022-09-05 16:24] VITALS: BP 121/69
[2022-09-05] MEDS: NICOTINE 21MG/24HR 1 EA TRANSDERMAL TD SCH (18:38)
[2022-09-05 20:08] VITALS: BP 122/71
[2022-09-05] MEDS ORDERED: INSULIN LISPRO (NovoLOG) PER UNIT SC SCH (21:00)
[2022-09-05] MEDS ORDERED: OMEPRAZOLE 20MG CAP PO SCH (21:00)
[2022-09-06] MEDS: KETOROLAC 30 MG/ML 1ML VIAL IV PRN (00:03)
[2022-09-06] MEDS ORDERED: cefTRIAXone SOD 1 GM in D5W MINI-BAG PLUS 50 ML IV SCH (05:00)
[2022-09-06] MEDS: oxyCODONE 5MG TAB PO PRN ×2 (05:56→11:59)
[2022-09-06 06:08] VITALS: BP 167/91
[2022-09-06 07:02] LABS: HEMATOCRIT 39.6 % (36.0-47.0); HEMOGLOBIN 13.3 g/dl (12.0-15.5); MEAN CORPUSCULAR HEMOGLOBIN 29.9 pg (27.0-33.0); MEAN CORPUSCULAR HGB CONC 33.6 g/dl (32.0-36.5); PLATELET COUNT, AUTOMATED 443 10^3/uL (150-450); RED BLOOD COUNT 4.45 10^6/uL (4.00-5.40); WHITE BLOOD COUNT 11.7 10^3/uL (4.0-10.0)
[2022-09-06] MEDS: INSULIN LISPRO (NovoLOG) PER UNIT SC SCH (07:30)
[2022-09-06 07:36] LABS: BLOOD UREA NITROGEN 17 MG/DL (7-18); CALCIUM LEVEL 8.4 MG/DL (8.5-10.1); CARBON DIOXIDE LEVEL 26 MEQ/L (21-32); CHLORIDE LEVEL 107 MEQ/L (98-107); CREATININE FOR GFR 0.63 MG/DL (0.55-1.30); GLOMERULAR FILTRATION RATE > 60.0 (>58); GLUCOSE, FASTING 120 MG/DL (70-100); MAGNESIUM LEVEL 1.9 MG/DL (1.8-2.4); PHOSPHORUS LEVEL 3.4 MG/DL (2.5-4.9); POTASSIUM SERUM 3.8 MEQ/L (3.5-5.1); SODIUM LEVEL 140 MEQ/L (136-145)
[2022-09-06 08:13] LABS: ATYPICAL LYMPH 6 % (0-5); BASOPHILS 5 % (0-1); EOSINOPHILS 2 % (0-3); LYMPHOCYTES 39 % (16-44); METAMYELOCYTES 2 % (0-0); MONOCYTES 5 % (0-5); MYELOCYTES 1 % (0-0); NEUTROPHILS 39 % (28-66); NUCLEATED RED BLOOD CELL 1 % (0-0)
[2022-09-06 08:14] LABS: ANISOCYTOSIS 1+
[2022-09-06 08:15] LABS: PLATELET ESTIMATE INCREASED (NORMAL)
[2022-09-06] MEDS ORDERED: ATORVASTATIN 20 MG TAB PO SCH (09:00)
[2022-09-06] MEDS: ENOXAPARIN 40MG/0.4ML SYRINGE (J1650 PER 10MG) SC SCH (09:49)
[2022-09-06] MEDS: PREGABALIN 100 MG CAP (LYRICA) PO SCH (09:50)
[2022-09-06] MEDS: NICOTINE 21MG/24HR 1 EA TRANSDERMAL TD SCH (09:51)
[2022-09-06] MEDS: LIDOCAINE 5% (LIDODERM) PATCH TOP SCH (09:52)
[2022-09-06] MEDS ORDERED: CEFD300C41 PO (09:59)
[2022-09-06] MEDS ORDERED: DIFL150T PO (10:24)
== END 2022-09-06 12:25 | disposition home or self-care (01) ==
LOC: M ED 00:18 → M ED INP 00:19 → ENRESERV 14:26 → M MS5PR 15:45
PROVIDERS: ADMIT Internal Medicine; ATTEND Internal Medicine
DX: N39.0 Urinary tract infection, site not specified (principal); M54.50 Low back pain, unspecified; G89.29 Other chronic pain; D72.829 Elevated white blood cell count, unspecified; E78.5 Hyperlipidemia, unspecified; E11.9 Type 2 diabetes mellitus without complications; K21.9 Gastro-esophageal reflux disease without esophagitis; F17.210 Nicotine dependence, cigarettes, uncomplicated; F11.20 Opioid dependence, uncomplicated; Z79.4 Long term (current) use of insulin; Z79.899 Other long term (current) drug therapy; Z79.84 Long term (current) use of oral hypoglycemic drugs; Z88.2 Allergy status to sulfonamides; B37.31 Acute candidiasis of vulva and vagina
CPT/HCPCS: 36415; 74176; 76856; 80048; 80076; 80503; 81000; 81015; 82150; 82550; 82553; 83690; 83735; 84100; 85025; 85610; 87086; 87631; 93041; 93976; 96365; 96366; 96372; 96375; 96376; 99285; J0696; J1650; J1885; J2270; J2405

== ENCOUNTER → 2022-09-19 | Outpatient (REF) | payer OTHER ==
[~2022-09-19] MED LIST changes: +CEFD300C41 PO; +IBUP200T46 PO; +METF-839 PO
[2022-09-19 18:03] LABS: BASO # 0.1 10^3/uL (0.0-0.2); BASO % 1.1 % (0.0-1.0); EOS # 0.3 10^3/uL (0.0-0.5); EOS % 2.8 % (0.0-3.0); HEMATOCRIT 44.1 % (36.0-47.0); HEMOGLOBIN 14.2 g/dl (12.0-15.5); LYMPH # 3.3 10^3/uL (1.5-5.0); LYMPH % 29.4 % (24.0-44.0); MEAN CORPUSCULAR HEMOGLOBIN 29.6 pg (27.0-33.0); MEAN CORPUSCULAR HGB CONC 32.2 g/dl (32.0-36.5); MEAN CORPUSCULAR VOLUME 91.9 fl (80.0-96.0); MONO # 1.2 10^3/uL (0.0-0.8); MONO % 10.6 % (2.0-8.0); NEUTROPHILS # 6.3 10^3/uL (1.5-8.5); NEUTROPHILS % 55.8 % (36.0-66.0); PLATELET COUNT, AUTOMATED 495 10^3/uL (150-450); WHITE BLOOD COUNT 11.3 10^3/uL (4.0-10.0)
[2022-09-19 19:18] LABS: ALBUMIN 3.6 GM/DL (3.2-5.2); ALT/SGPT 25 U/L (12-78); BILIRUBIN,TOTAL 0.4 MG/DL (0.2-1.0); BLOOD UREA NITROGEN 12 MG/DL (7-18); CALCIUM LEVEL 9.3 MG/DL (8.5-10.1); CARBON DIOXIDE LEVEL 28 MEQ/L (21-32); CHLORIDE LEVEL 104 MEQ/L (98-107); CHOLESTEROL LEVEL 137 MG/DL (<200); CHOLESTEROL RISK RATIO 2.686 (<5); CREATININE FOR GFR 0.62 MG/DL (0.55-1.30); GLOMERULAR FILTRATION RATE > 60.0 (>58); GLUCOSE, FASTING 128 MG/DL (70-100); HDL CHOLESTEROL 51 MG/DL (>40); LDL CHOLESTEROL 33 MG/DL (<100); NON-HDL-C 86 MG/DL; POTASSIUM SERUM 4.7 MEQ/L (3.5-5.1); SODIUM LEVEL 137 MEQ/L (136-145); TRIGLYCERIDES LEVEL 265 MG/DL (<150)
[2022-09-19 20:14] LABS: TOTAL 25(OH) VITAMIN D 38.4 NG/ML (30.0-100.0)
[2022-09-19 20:38] LABS: HEMOGLOBIN A1c 6.5 %
== END ==
LOC: M LAB REF 16:47
PROVIDERS: ATTEND Family Medicine Addiction Medicine
DX: E55.9 Vitamin D deficiency, unspecified (principal); D72.829 Elevated white blood cell count, unspecified; E11.9 Type 2 diabetes mellitus without complications

== ENCOUNTER → 2022-09-30 | Outpatient (CLI) | payer OTHER | LOC: M LABSMTC 10:04 | PROVIDERS: ATTEND Anesthesiology | DX: Z01.812 Encounter for preprocedural laboratory examination (principal); Z20.822 Contact with and (suspected) exposure to COVID-19 ==

== ENCOUNTER 2022-10-03 07:03 | Day surgery (SDC) | payer OTHER ==
[~2022-10-03] VITALS: Ht 162.6 cm; Wt 88.5 kg
[~2022-10-03 07:03] MED LIST changes: +NS 1,000 ML IV ONE
[2022-10-03] MEDS ORDERED: propofoL 200 MG/20 ML VIAL As Ordered ONE ×2 (07:18→08:27)
[2022-10-03] MEDS ORDERED: LIDOCAINE 2% 100MG/5ML SDV (FOR ANES.) As Ordered ONE (07:18)
[2022-10-03] MEDS ORDERED: MIDAZOLAM INJ 2MG/2ML VIAL (J2250 PER 1MG) As Ordered ONE (07:19)
[2022-10-03 09:08] VITALS: BP 133/73
== END 2022-10-03 09:10 | disposition home or self-care (01) ==
LOC: M OPP 07:03
PROVIDERS: ATTEND Internal Medicine Gastroenterology
DX: Z12.11 Encounter for screening for malignant neoplasm of colon (principal); K64.0 First degree hemorrhoids; Z79.02 Long term (current) use of antithrombotics/antiplatelets; Z79.4 Long term (current) use of insulin; Z79.891 Long term (current) use of opiate analgesic; Z88.2 Allergy status to sulfonamides; Z88.8 Allergy status to other drugs, medicaments and biological substances; E11.9 Type 2 diabetes mellitus without complications; E78.00 Pure hypercholesterolemia, unspecified; J44.9 Chronic obstructive pulmonary disease, unspecified; F41.9 Anxiety disorder, unspecified; F43.29 Adjustment disorder with other symptoms; Z87.09 Personal history of other diseases of the respiratory system; Z86.14 Personal history of Methicillin resistant Staphylococcus aureus infection; Z87.448 Personal history of other diseases of urinary system; F17.200 Nicotine dependence, unspecified, uncomplicated
CPT/HCPCS: 45378; J2250

== ENCOUNTER → 2022-11-26 | Outpatient (CLI) | payer OTHER ==
[~2022-11-26] MED LIST changes: +LIDOCAINE 1% MDV 20ML VIAL As Ordered ONE; -NS 1,000 ML IV ONE
[2022-11-26 10:40] VITALS: BP 158/76
== END ==
LOC: M IRPRO 09:45
PROVIDERS: ATTEND Internal Medicine Medical Oncology
DX: R59.0 Localized enlarged lymph nodes (principal)

== ENCOUNTER → 2023-09-24 | Outpatient (REF) | payer OTHER, MEDICAID ==
[~2023-09-24] MED LIST changes: -CEFD300C41 PO; +CEFD300C42 PO; +INSU100I6 SC; -LEVE1INJ5 SC; -LIDOCAINE 1% MDV 20ML VIAL As Ordered ONE; -PREG100C PO; +PREG100C2 PO
[2023-09-24 17:41] LABS: CREATININE, URINE 347.7 MG/DL; MAU/CREAT RATIO 12.3 MCG/MG (0.0-30.0)
[2023-09-24 18:13] LABS: BASO # 0.1 10^3/uL (0.0-0.2); BASO % 0.6 % (0.0-1.0); EOS # 0.1 10^3/uL (0.0-0.5); EOS % 0.8 % (0.0-3.0); HEMATOCRIT 45.5 % (36.0-47.0); HEMOGLOBIN 15.4 g/dl (12.0-15.5); LYMPH # 3.9 10^3/uL (1.5-5.0); LYMPH % 26.7 % (24.0-44.0); MEAN CORPUSCULAR HEMOGLOBIN 30.4 pg (27.0-33.0); MEAN CORPUSCULAR HGB CONC 33.8 g/dl (32.0-36.5); MEAN CORPUSCULAR VOLUME 89.9 fl (80.0-96.0); MONO # 1.1 10^3/uL (0.0-0.8); MONO % 7.7 % (2.0-8.0); NEUTROPHILS # 9.3 10^3/uL (1.5-8.5); NEUTROPHILS % 63.9 % (36.0-66.0); PLATELET COUNT, AUTOMATED 452 10^3/uL (150-450); RED BLOOD COUNT 5.06 10^6/uL (4.00-5.40); WHITE BLOOD COUNT 14.6 10^3/uL (4.0-10.0)
[2023-09-24 18:23] LABS: ALBUMIN 4.1 G/DL (3.2-5.2); ALKALINE PHOSPHATASE 91 U/L (46-116); ALT/SGPT 36 U/L (7.0-40); AST/SGOT 26 U/L (<34); BILIRUBIN,TOTAL 0.5 MG/DL (0.3-1.2); BLOOD UREA NITROGEN 14 MG/DL (9-23); CALCIUM LEVEL 9.8 MG/DL (8.5-10.1); CARBON DIOXIDE LEVEL 23 MMOL/L (20-31); CHLORIDE LEVEL 105 MMOL/L (98-107); CREATININE FOR GFR 0.53 MG/DL (0.55-1.30); GLOMERULAR FILTRATION RATE > 60.0 (>51); GLUCOSE, FASTING 101 MG/DL (60-100); POTASSIUM SERUM 4.3 MMOL/L (3.5-5.1); SODIUM LEVEL 139 MMOL/L (136-145); THYROID STIMULATING HORMONE 1.172 uIU/ML (0.55-4.78); TOTAL PROTEIN 7.4 G/DL (5.7-8.2)
== END ==
LOC: M LAB REF 16:34
PROVIDERS: ATTEND Family Medicine Addiction Medicine
DX: E11.9 Type 2 diabetes mellitus without complications (principal)

== ENCOUNTER 2024-02-05 21:28 | Emergency (ER) | payer MEDICAID, OTHER ==
[~2024-02-05] VITALS: Ht 162.6 cm; Wt 88.6 kg
[~2024-02-05 21:28] MED LIST changes: +CEFD1CAP9 PO; -CEFD300C42 PO
[2024-02-05] MEDS ORDERED: FLUO40CA (21:33)
[2024-02-06] MEDS: PERCOCET 5MG/325MG TAB PO ONE (01:09)
[2024-02-06 01:39] VITALS: BP 140/77; TEMP 96.5; O2SAT 99
== END 2024-02-06 01:51 | disposition home or self-care (01) ==
LOC: M ED 21:28
DX: S92.351A Displaced fracture of fifth metatarsal bone, right foot, initial encounter for closed fracture (principal); M25.562 Pain in left knee; W18.49XA Other slipping, tripping and stumbling without falling, initial encounter; F43.10 Post-traumatic stress disorder, unspecified; F31.9 Bipolar disorder, unspecified; F17.200 Nicotine dependence, unspecified, uncomplicated; Z88.2 Allergy status to sulfonamides; Z88.8 Allergy status to other drugs, medicaments and biological substances; Z79.02 Long term (current) use of antithrombotics/antiplatelets; Z79.4 Long term (current) use of insulin; Z79.891 Long term (current) use of opiate analgesic; Z79.899 Other long term (current) drug therapy; Y92.009 Unspecified place in unspecified non-institutional (private) residence as the place of occurrence of the external cause; Y93.89 Activity, other specified; Y99.9 Unspecified external cause status

== ENCOUNTER → 2024-02-07 | Outpatient (CLI) | payer OTHER ==
[~2024-02-07] MED LIST changes: +FLUO40CA
== END ==
LOC: M SOG 10:55
PROVIDERS: ATTEND Physician Assistant
DX: S92.351A Displaced fracture of fifth metatarsal bone, right foot, initial encounter for closed fracture (principal)

== ENCOUNTER → 2024-02-13 | Outpatient (CLI) | payer OTHER | LOC: M SOG 07:55 | PROVIDERS: ATTEND Physician Assistant | DX: S92.351D Displaced fracture of fifth metatarsal bone, right foot, subsequent encounter for fracture with routine healing (principal) ==

== ENCOUNTER → 2024-02-27 | Outpatient (CLI) | payer OTHER | LOC: M SOG 14:46 | PROVIDERS: ATTEND Physician Assistant | DX: S92.351D Displaced fracture of fifth metatarsal bone, right foot, subsequent encounter for fracture with routine healing (principal); S82.231D Displaced oblique fracture of shaft of right tibia, subsequent encounter for closed fracture with routine healing ==

== ENCOUNTER → 2024-03-12 | Outpatient (CLI) | payer OTHER | LOC: M SOG 14:31 | PROVIDERS: ATTEND Physician Assistant | DX: S92.351D Displaced fracture of fifth metatarsal bone, right foot, subsequent encounter for fracture with routine healing (principal) ==

== ENCOUNTER → 2024-03-31 | Outpatient (CLI) | payer OTHER | LOC: M SOG 07:50 | PROVIDERS: ATTEND Physician Assistant | DX: S92.351A Displaced fracture of fifth metatarsal bone, right foot, initial encounter for closed fracture (principal); W18.30XA Fall on same level, unspecified, initial encounter; Y92.009 Unspecified place in unspecified non-institutional (private) residence as the place of occurrence of the external cause ==

== ENCOUNTER → 2024-05-05 | Outpatient (CLI) | payer OTHER | LOC: M SOG 07:52 | PROVIDERS: ATTEND Physician Assistant | DX: S92.351D Displaced fracture of fifth metatarsal bone, right foot, subsequent encounter for fracture with routine healing (principal); Z53.9 Procedure and treatment not carried out, unspecified reason ==

== ENCOUNTER → 2024-05-06 | Outpatient (CLI) | payer OTHER | LOC: M SOG 07:51 | PROVIDERS: ATTEND Physician Assistant | DX: S92.351D Displaced fracture of fifth metatarsal bone, right foot, subsequent encounter for fracture with routine healing (principal); Z53.9 Procedure and treatment not carried out, unspecified reason ==

== ENCOUNTER → 2024-06-19 | Outpatient (REF) | payer OTHER ==
[2024-06-19 13:32] LABS: ALBUMIN 3.9 G/DL (3.2-5.2); ALKALINE PHOSPHATASE 118 U/L (46-116); ALT/SGPT 36 U/L (7.0-40); AST/SGOT 25 U/L (<34); BILIRUBIN,TOTAL 0.2 MG/DL (0.3-1.2); BLOOD UREA NITROGEN 14 MG/DL (9-23); CALCIUM LEVEL 9.7 MG/DL (8.5-10.1); CARBON DIOXIDE LEVEL 27 MMOL/L (20-31); CHLORIDE LEVEL 103 MMOL/L (98-107); CHOLESTEROL LEVEL 153 MG/DL (<200); CREATININE FOR GFR 0.66 MG/DL (0.55-1.30); GLOMERULAR FILTRATION RATE > 60.0 (>51); GLUCOSE, FASTING 149 MG/DL (60-100); HDL CHOLESTEROL 52.6 MG/DL (>40); LDL CHOLESTEROL 41.8 MG/DL (<100); NON-HDL-C 100.4 MG/DL; POTASSIUM SERUM 4.2 MMOL/L (3.5-5.1); SODIUM LEVEL 138 MMOL/L (136-145); TOTAL PROTEIN 7.5 G/DL (5.7-8.2); TRIGLYCERIDES LEVEL 293 MG/DL (<150)
[2024-06-19 13:33] LABS: THYROID STIMULATING HORMONE 3.047 uIU/ML (0.55-4.78)
[2024-06-19 13:43] LABS: HEMOGLOBIN A1c 7.1 % (4.0-6.0)
== END ==
LOC: M LAB REF 12:40
PROVIDERS: ATTEND Family Medicine Addiction Medicine
DX: E11.9 Type 2 diabetes mellitus without complications (principal)

== ENCOUNTER 2024-07-04 21:35 | Emergency (ER) | payer OTHER ==
[~2024-07-04] VITALS: Ht 162.6 cm; Wt 86.4 kg
[2024-07-05 00:13] VITALS: BP 153/99; TEMP 98.5; O2SAT 99
[2024-07-05] MEDS: METHOCARBAMOL 1,000 MG/10 ML VIAL IV ONE (01:29)
[2024-07-05] MEDS: KETOROLAC 30 MG/ML 1ML VIAL IV ONE (01:30)
[2024-07-05] MEDS ORDERED: METH-1164 PO (01:59)
[2024-07-05] MEDS ORDERED: MEDR4PAK PO (01:59)
[2024-07-05] MEDS: HYDROMORPHONE HCL 0.5 MG/ 0.5 ML SYRINGE IV PRN (02:10)
== END 2024-07-05 02:58 | disposition home or self-care (01) ==
LOC: M ED 21:35
DX: M50.10 Cervical disc disorder with radiculopathy, unspecified cervical region (principal); M47.22 Other spondylosis with radiculopathy, cervical region; M25.78 Osteophyte, vertebrae; I10 Essential (primary) hypertension; E11.9 Type 2 diabetes mellitus without complications; K21.9 Gastro-esophageal reflux disease without esophagitis; M79.7 Fibromyalgia; F31.9 Bipolar disorder, unspecified; F41.9 Anxiety disorder, unspecified; F43.10 Post-traumatic stress disorder, unspecified; F17.200 Nicotine dependence, unspecified, uncomplicated; Z88.2 Allergy status to sulfonamides; Z88.8 Allergy status to other drugs, medicaments and biological substances; Z79.02 Long term (current) use of antithrombotics/antiplatelets; Z79.4 Long term (current) use of insulin; Z79.899 Other long term (current) drug therapy
CPT/HCPCS: 72125; 96374; 96375; 99284; J1170; J1885; J2800

== ENCOUNTER → 2025-01-19 | Outpatient (CLI) | payer OTHER ==
[~2025-01-19] MED LIST changes: +MEDR4PAK PO; +METH-1164 PO
== END ==
LOC: M WHC 13:30
PROVIDERS: ATTEND Obstetrics & Gynecology
DX: R92.2 Inconclusive mammogram (principal); N63.10 Unspecified lump in the right breast, unspecified quadrant; Z13.820 Encounter for screening for osteoporosis; M85.851 Other specified disorders of bone density and structure, right thigh

== ENCOUNTER → 2025-02-02 | Outpatient (CLI) | payer OTHER | LOC: M WHC 12:31 | PROVIDERS: ATTEND Obstetrics & Gynecology | DX: R92.2 Inconclusive mammogram (principal) ==

== ENCOUNTER → 2025-02-09 | Outpatient (CLI) | payer OTHER | LOC: M RAD 14:38 | PROVIDERS: ATTEND Family Medicine Addiction Medicine | DX: R05.9 Cough, unspecified (principal) ==

== ENCOUNTER → 2025-05-20 | Outpatient (CLI) | payer OTHER ==
[~2025-05-20] MED LIST changes: +METHACHOLINE KIT (6 VIAL.NEB PREMIX) INH ONE
== END ==
LOC: M CARPUL 07:49
PROVIDERS: ATTEND Physician Assistant
DX: R06.02 Shortness of breath (principal)
CPT/HCPCS: 94070; 95070; J7674

== ENCOUNTER → 2025-06-01 | Outpatient (CLI) | payer OTHER ==
[~2025-06-01] MED LIST changes: -METHACHOLINE KIT (6 VIAL.NEB PREMIX) INH ONE
[2025-06-01 18:46] LABS: BASO # 0.1 10^3/uL (0.0-0.2); BASO % 1.0 % (0.0-1.0); EOS # 0.3 10^3/uL (0.0-0.5); EOS % 2.5 % (0.0-3.0); LYMPH # 4.3 10^3/uL (1.5-5.0); LYMPH % 31.0 % (24.0-44.0); MONO # 1.1 10^3/uL (0.0-0.8); MONO % 7.9 % (2.0-8.0); NEUTROPHILS # 7.9 10^3/uL (1.5-8.5); NEUTROPHILS % 57.2 % (36.0-66.0); PLATELET COUNT, AUTOMATED 415 10^3/uL (150-450)
== END ==
LOC: M WUC 12:47
PROVIDERS: ATTEND Physician Assistant
DX: D72.829 Elevated white blood cell count, unspecified (principal); D75.839 Thrombocytosis, unspecified

== ENCOUNTER → 2025-07-16 | Outpatient (REF) | payer OTHER, MEDICAID ==
[~2025-07-16] MED LIST changes: +ADVA115A INH; +CARE1KIT XX; -IBUP1TAB6 PO; +LANTINJ4 SC; +LOSA50TA28 PO; +METF-877 PO; +METF500T13 PO; +SFHIBU600 PO
[2025-07-16 12:49] LABS: BASO # 0.1 10^3/uL (0.0-0.2); BASO % 0.9 % (0.0-1.0); EOS # 0.3 10^3/uL (0.0-0.5); EOS % 1.8 % (0.0-3.0); LYMPH # 3.5 10^3/uL (1.5-5.0); LYMPH % 25.7 % (24.0-44.0); MONO # 1.1 10^3/uL (0.0-0.8); MONO % 7.9 % (2.0-8.0); NEUTROPHILS # 8.8 10^3/uL (1.5-8.5); NEUTROPHILS % 63.5 % (36.0-66.0); PLATELET COUNT, AUTOMATED 418 10^3/uL (150-450)
[2025-07-16 12:53] LABS: ALT/SGPT 80 U/L (7.0-40); AST/SGOT 75 U/L (<34); CALCIUM LEVEL 9.6 MG/DL (8.5-10.1); CARBON DIOXIDE LEVEL 26 MMOL/L (20-31); CHLORIDE LEVEL 100 MMOL/L (98-107); CHOLESTEROL LEVEL 126 MG/DL (<200); CHOLESTEROL RISK RATIO 2.53 (<5); CREATININE FOR GFR 0.45 MG/DL (0.55-1.30); GLOMERULAR FILTRATION RATE > 90.0 (>51); LDL CHOLESTEROL 5.1 MG/DL (<100); NON-HDL-C 76.3 MG/DL; POTASSIUM SERUM 4.3 MMOL/L (3.5-5.1); SODIUM LEVEL 137 MMOL/L (136-145); TRIGLYCERIDES LEVEL 356 MG/DL (<150)
== END ==
LOC: M LAB REF 12:19
PROVIDERS: ATTEND Family Medicine Addiction Medicine
DX: E11.9 Type 2 diabetes mellitus without complications (principal)

== ENCOUNTER 2025-07-22 10:37 | Emergency (ER) | payer MEDICAID, OTHER ==
[~2025-07-22] VITALS: Ht 162.6 cm; Wt 83.7 kg
[~2025-07-22 10:37] MED LIST changes: -ADVA115A INH; -CARE1KIT XX; -LANTINJ4 SC; -LOSA50TA28 PO; -METF-877 PO; -METF500T13 PO
[2025-07-22] MEDS ORDERED: METF-877 PO (10:48)
[2025-07-22] MEDS ORDERED: ADVA115A INH (10:48)
[2025-07-22] MEDS ORDERED: LOSA50TA28 PO (10:48)
[2025-07-22] MEDS ORDERED: METF500T13 PO (11:49)
[2025-07-22] MEDS ORDERED: HOME MED LIST COMPLETE! XX SCH (11:50)
[2025-07-22 11:51] LABS: VENOUS BASE EXCESS -2.3 (-2.0-2.0); VENOUS HCO3 21.8 MMOL/L (23.0-27.0); VENOUS O2 SATURATION 91.0 % (60.0-80.0); VENOUS PARTIAL PRESSURE CO2 35.9 mmHg (38.0-50.0); VENOUS PARTIAL PRESSURE O2 57.4 mmHg (30.0-50.0); VENOUS PH 7.402 UNITS (7.330-7.430); VENOUS STANDARD HCO3 22.4 MMOL/L; VENOUS TOTAL CO2 22.9 MMOL/L (24.0-28.0)
[2025-07-22 11:54] LABS: BASO # 0.1 10^3/uL (0.0-0.2); BASO % 0.6 % (0.0-1.0); EOS # 0.3 10^3/uL (0.0-0.5); EOS % 2.2 % (0.0-3.0); LYMPH # 4.1 10^3/uL (1.5-5.0); LYMPH % 26.5 % (24.0-44.0); MONO # 1.1 10^3/uL (0.0-0.8); MONO % 6.9 % (2.0-8.0); NEUTROPHILS # 9.9 10^3/uL (1.5-8.5); NEUTROPHILS % 63.5 % (36.0-66.0); PLATELET COUNT, AUTOMATED 448 10^3/uL (150-450)
[2025-07-22 12:20] LABS: OSMOLALITY SERUM 315 MOSM/KG (275-295)
[2025-07-22 12:25] LABS: CPK CREATINE PHOSPHOKINASE 60 U/L (34-145)
[2025-07-22 12:26] LABS: ALT/SGPT 75 U/L (7.0-40); AST/SGOT 68 U/L (<34); CALCIUM LEVEL 9.7 MG/DL (8.5-10.1); CARBON DIOXIDE LEVEL 24 MMOL/L (20-31); CHLORIDE LEVEL 101 MMOL/L (98-107); CK-MB VALUE MASS < 1.0 NG/ML (<3.6); CREATININE FOR GFR 0.40 MG/DL (0.55-1.30); GLOMERULAR FILTRATION RATE > 90.0 (>51); MAGNESIUM LEVEL 1.4 MG/DL (1.8-2.4); POTASSIUM SERUM 4.5 MMOL/L (3.5-5.1); SODIUM LEVEL 138 MMOL/L (136-145)
[2025-07-22] MEDS ORDERED: ISOVUE-370 76% 100 ML VIAL As Ordered ONE (13:30)
[2025-07-22] MEDS: ACETAMINOPHEN 500 MG TAB PO ONE (13:54)
[2025-07-22] MEDS: MAG SULF 1GM/100ML (MAG RUN) 1 GM in IV 1 EA IV ONE ×2 (16:00→17:12)
[2025-07-22] MEDS: LIDOCAINE 5% PATCH TD ONE (16:02)
[2025-07-22 16:39] LABS: KETONE, URINE AUTO RFX 1+ mg/dL (NEGATIVE); LEUKOCYTE ESTERASE UR AUTO RFX NEGATIVE (NEGATIVE); MUCUS, URINE RFX SMALL (NEGATIVE); NITRITE, URINE AUTO RFX NEGATIVE (NEGATIVE); RBC, URINE AUTO RFX 3 /HPF (0-3); SQUAM EPITHELIAL CELL UR AURFX 1 /HPF (0-6); WBC, URINE AUTO RFX 3 /HPF (0-3)
[2025-07-22] MEDS: NS (Normal Saline) 0.9% 1,000 ML IV ONE (17:13)
[2025-07-22] MEDS ORDERED: LANTINJ4 SC (17:35)
[2025-07-22] MEDS ORDERED: CARE1KIT XX (17:43)
[2025-07-22 19:23] VITALS: BP 145/67; TEMP 97.6; O2SAT 95
== END 2025-07-22 19:37 | disposition home or self-care (01) ==
LOC: M ED 10:37
DX: E11.65 Type 2 diabetes mellitus with hyperglycemia (principal); E83.42 Hypomagnesemia; K59.00 Constipation, unspecified; R16.0 Hepatomegaly, not elsewhere classified; K76.0 Fatty (change of) liver, not elsewhere classified; I70.0 Atherosclerosis of aorta; E78.5 Hyperlipidemia, unspecified; J44.9 Chronic obstructive pulmonary disease, unspecified; Z88.2 Allergy status to sulfonamides; Z88.8 Allergy status to other drugs, medicaments and biological substances; Z79.02 Long term (current) use of antithrombotics/antiplatelets; Z79.4 Long term (current) use of insulin; Z79.899 Other long term (current) drug therapy
CPT/HCPCS: 70450; 74177; 80048; 80076; 81001; 82140; 82550; 82553; 82803; 83735; 83930; 84443; 84484; 85025; 93005; 96365; 96366; 99285; J3475; Q9967

== ENCOUNTER 2025-07-26 12:33 | Emergency (ER) | payer OTHER ==
[~2025-07-26] VITALS: Ht 162.6 cm; Wt 83.8 kg
[~2025-07-26 12:33] MED LIST changes: +ADVA115A INH; +CARE1KIT XX; +LANTINJ4 SC; +LOSA50TA28 PO; +METF-877 PO; +METF500T13 PO
[2025-07-26] MEDS ORDERED: METF500T13 PO ×2 (12:44→13:53)
[2025-07-26 13:33] LABS: VENOUS BASE EXCESS 0.5 (-2.0-2.0); VENOUS HCO3 23.9 MMOL/L (23.0-27.0); VENOUS O2 SATURATION 98.3 % (60.0-80.0); VENOUS PARTIAL PRESSURE CO2 34.9 mmHg (38.0-50.0); VENOUS PARTIAL PRESSURE O2 105.0 mmHg (30.0-50.0); VENOUS PH 7.453 UNITS (7.330-7.430); VENOUS STANDARD HCO3 25.0 MMOL/L; VENOUS TOTAL CO2 24.9 MMOL/L (24.0-28.0)
[2025-07-26] MEDS ORDERED: HOME MED LIST COMPLETE! XX SCH (13:55)
[2025-07-26 14:03] LABS: ACETONE/KETONE 0.28 MMOL/L (0.02-0.27); ALT/SGPT 81.0 U/L (7.0-40); AST/SGOT 75.0 U/L (<34); PLATELET COUNT, AUTOMATED 529 10^3/uL (150-450)
[2025-07-26 14:13] LABS: OSMOLALITY SERUM 313.0 MOSM/KG (275-295)
[2025-07-26] MEDS: HumuLIN R (REGULAR) INSULIN (NovoLIN R) **100 U/ML** PER UNIT IV ONE ×2 (14:22→18:58)
[2025-07-26 14:30] LABS: ATYPICAL LYMPH 1 % (0-5); LYMPHOCYTES 29 % (16-44); MONOCYTES 6 % (0-5); NEUTROPHILS 63 % (28-66); PLATELET ESTIMATE INCREASED (NORMAL)
[2025-07-26 14:46] LABS: MAGNESIUM LEVEL 1.4 MG/DL (1.8-2.4)
[2025-07-26 15:04] LABS: KETONE, URINE AUTO RFX TRACE mg/dL (NEGATIVE); LEUKOCYTE ESTERASE UR AUTO RFX NEGATIVE (NEGATIVE); NITRITE, URINE AUTO RFX NEGATIVE (NEGATIVE); RBC, URINE AUTO RFX 0 /HPF (0-3); SQUAM EPITHELIAL CELL UR AURFX 1 /HPF (0-6); WBC, URINE AUTO RFX 2 /HPF (0-3)
[2025-07-26] MEDS: ACETAMINOPHEN *IV* 1,000 MG in IV 1 EA IV ONE (15:30)
[2025-07-26 15:42] LABS: ETHYL ALCOHOL (ETHANOL) 0.005 % (0.000-0.010)
[2025-07-26] MEDS: MAG SULF 1GM/100ML (MAG RUN) 1 GM in IV 1 EA IV ONE ×2 (15:42→16:52)
[2025-07-26 17:45] VITALS: TEMP 97.3
[2025-07-26] MEDS: NS (Normal Saline) 0.9% 1,000 ML IV ONE (18:58)
[2025-07-26] MEDS ORDERED: SEMA0.257 SQ (19:59)
[2025-07-26 20:00] VITALS: BP 150/67; O2SAT 98
== END 2025-07-26 20:18 | disposition home or self-care (01) ==
LOC: M ED 12:33
DX: E83.42 Hypomagnesemia (principal); E11.65 Type 2 diabetes mellitus with hyperglycemia; G89.4 Chronic pain syndrome; R00.0 Tachycardia, unspecified; I45.81 Long QT syndrome; E78.5 Hyperlipidemia, unspecified; F17.200 Nicotine dependence, unspecified, uncomplicated; Z88.2 Allergy status to sulfonamides; Z88.8 Allergy status to other drugs, medicaments and biological substances; Z79.02 Long term (current) use of antithrombotics/antiplatelets; Z79.4 Long term (current) use of insulin; Z79.899 Other long term (current) drug therapy
CPT/HCPCS: 36415; 80047; 80076; 81001; 82010; 82077; 82803; 83036; 83690; 83735; 83930; 85025; 93005; 93041; 94760; 96365; 96366; 96375; 96376; 99285; J0131; J1815; J3475

== ENCOUNTER 2025-08-30 11:43 | Observation (INO) | payer OTHER ==
[~2025-08-30] VITALS: Ht 162.6 cm; Wt 84.2 kg
[~2025-08-30 11:43] MED LIST changes: -ALEV220T22 PO; -MAGN400T35 PO; -OXYB5TAB14 PO; -PHEN1TAB73 PO; -TRUL10IN SC
[2025-08-30] MEDS: KETOROLAC 30 MG/ML 1 ML VIAL IV ONE (12:14)
[2025-08-30 12:26] LABS: BASO # 0.1 10^3/uL (0.0-0.2); BASO % 0.6 % (0.0-1.0); EOS # 0.2 10^3/uL (0.0-0.5); EOS % 1.3 % (0.0-3.0); LYMPH # 4.4 10^3/uL (1.5-5.0); LYMPH % 24.4 % (24.0-44.0); MONO # 1.4 10^3/uL (0.0-0.8); MONO % 7.8 % (2.0-8.0); NEUTROPHILS # 11.8 10^3/uL (1.5-8.5); NEUTROPHILS % 65.6 % (36.0-66.0); PLATELET COUNT, AUTOMATED 555 10^3/uL (150-450)
[2025-08-30 12:38] LABS: INR 0.88
[2025-08-30 12:47] LABS: ALT/SGPT 55 U/L (7.0-40); AST/SGOT 56 U/L (<34); CALCIUM LEVEL 9.9 MG/DL (8.5-10.1); CARBON DIOXIDE LEVEL 22 MMOL/L (20-31); CHLORIDE LEVEL 108 MMOL/L (98-107); CREATININE FOR GFR 0.52 MG/DL (0.55-1.30); GLOMERULAR FILTRATION RATE > 90.0 (>51); POTASSIUM SERUM 4.4 MMOL/L (3.5-5.1); SODIUM LEVEL 144 MMOL/L (136-145)
[2025-08-30 12:58] LABS: HCG, SERUM QUALITATIVE NEGATIVE (NEGATIVE)
[2025-08-30] MEDS: MORPHINE 4 MG/ML 1 ML VIAL IV ONE ×2 (13:04→20:07)
[2025-08-30 13:56] LABS: KETONE, URINE AUTO RFX TRACE mg/dL (NEGATIVE); LEUKOCYTE ESTERASE UR AUTO RFX NEGATIVE (NEGATIVE); MUCUS, URINE RFX LARGE (NEGATIVE); NITRITE, URINE AUTO RFX NEGATIVE (NEGATIVE); RBC, URINE AUTO RFX 68 /HPF (0-3); SQUAM EPITHELIAL CELL UR AURFX 3 /HPF (0-6); WBC, URINE AUTO RFX 9 /HPF (0-3)
[2025-08-30] MEDS: TAMSULOSIN 0.4 MG CAP PO ONE (14:27)
[2025-08-30] MEDS: PERCOCET 5MG/325MG TAB PO ONE (14:28)
[2025-08-30] MEDS: NS (Normal Saline) 0.9% 1,000 ML IV ONE (14:28)
[2025-08-30] MEDS ORDERED: ALEV220T22 PO (16:29)
[2025-08-30] MEDS ORDERED: LANTINJ4 SC (16:29)
[2025-08-30] MEDS ORDERED: TRUL10IN SC (16:29)
[2025-08-30] MEDS ORDERED: MAGN400T35 PO (16:29)
[2025-08-30] MEDS ORDERED: HOME MED LIST COMPLETE! XX SCH (16:35)
[2025-08-30] MEDS ORDERED: ONDANSETRON 4MG/2ML VIAL IV PRN (16:40)
[2025-08-30] MEDS ORDERED: GLUCAGON INJ 1 MG VIAL SC PRN (16:40)
[2025-08-30] MEDS ORDERED: ACETAMINOPHEN 500 MG TAB PO PRN (16:40)
[2025-08-30] MEDS ORDERED: DEXTROSE 50% 50 ML SYRINGE IV PRN (16:40)
[2025-08-30] MEDS ORDERED: GLUCOSE 4 GM CHEW PO PRN (16:40)
[2025-08-30] MEDS: LR 1,000 ML IV SCH (17:09)
[2025-08-30] MEDS: TAMSULOSIN 0.4 MG CAP PO SCH (17:09)
[2025-08-30] MEDS: PREGABALIN 100 MG CAP PO SCH (18:18)
[2025-08-30] MEDS: MORPHINE 4 MG/ML 1 ML VIAL IV PRN (18:18)
[2025-08-30] MEDS: INSULIN LISPRO (NovoLOG) PER UNIT SC SCH (18:19)
[2025-08-30] MEDS: ADVAIR HFA 115/21 MCG INHALER INH SCH (19:13)
[2025-08-30 20:24] LABS: PLATELET COUNT, AUTOMATED 481 10^3/uL (150-450)
[2025-08-30] MEDS: HEPARIN SOD 5000 UNITS/ML 1 ML VIAL/SYRINGE SQ SCH (21:00)
[2025-08-30] MEDS: KETOROLAC 30 MG/ML 1 ML VIAL IV PRN (21:25)
[2025-08-30 21:45] LABS: ALT/SGPT 43 U/L (7.0-40); AST/SGOT 50 U/L (<34); CALCIUM LEVEL 8.7 MG/DL (8.5-10.1); CARBON DIOXIDE LEVEL 21 MMOL/L (20-31); CHLORIDE LEVEL 107 MMOL/L (98-107); CREATININE FOR GFR 0.51 MG/DL (0.55-1.30); GLOMERULAR FILTRATION RATE > 90.0 (>51); POTASSIUM SERUM 4.5 MMOL/L (3.5-5.1); SODIUM LEVEL 143 MMOL/L (136-145)
[2025-08-30 22:10] VITALS: BP 139/67; TEMP 97; O2SAT 98
[2025-08-31] VITALS (12 sets, daily range): BP systolic 102–161; BP diastolic 54–82; TEMP 97.1–98.2; O2SAT 92–99
[2025-08-31] MEDS ORDERED: MORPHINE 4 MG/ML 1 ML VIAL IV PRN (01:00)
[2025-08-31] MEDS: MORPHINE 4 MG/ML 1 ML VIAL IV PRN (01:16)
[2025-08-31 06:43] LABS: PLATELET COUNT, AUTOMATED 427 10^3/uL (150-450)
[2025-08-31 07:08] LABS: CALCIUM LEVEL 8.4 MG/DL (8.5-10.1); CARBON DIOXIDE LEVEL 26 MMOL/L (20-31); CHLORIDE LEVEL 108 MMOL/L (98-107); CREATININE FOR GFR 0.64 MG/DL (0.55-1.30); GLOMERULAR FILTRATION RATE > 90.0 (>51); MAGNESIUM LEVEL 1.5 MG/DL (1.8-2.4); POTASSIUM SERUM 3.8 MMOL/L (3.5-5.1); SODIUM LEVEL 145 MMOL/L (136-145)
[2025-08-31] MEDS: PANTOPRAZOLE 40MG TAB PO SCH (07:25)
[2025-08-31] MEDS: ATORVASTATIN 20 MG TAB PO SCH (07:25)
[2025-08-31] MEDS: LOSARTAN 50 MG TABLET PO SCH (11:41)
[2025-08-31] MEDS ORDERED: MIDAZOLAM INJ 2 MG/2 ML VIAL As Ordered ONE (17:10)
[2025-08-31] MEDS ORDERED: dexAMETHasone 4 MG/ML 1 ML VIAL As Ordered ONE (17:10)
[2025-08-31] MEDS ORDERED: LIDOCAINE 2% 100 MG/5 ML SDV (FOR ANES.) As Ordered ONE (17:10)
[2025-08-31] MEDS ORDERED: ONDANSETRON 4MG/2ML VIAL As Ordered ONE (17:10)
[2025-08-31] MEDS: ISOVUE-300 61% 100 ML VIAL As Ordered ONE (17:15)
[2025-08-31] MEDS ORDERED: ACETAMINOPHEN 1000MG/100ML IV BAG As Ordered ONE (17:18)
[2025-08-31] MEDS: INSULIN LISPRO (NovoLOG) PER UNIT SC SCH (21:27)
[2025-08-31] MEDS: PHENAZOPYRIDINE 100 MG TAB PO SCH (21:27)
[2025-09-01 03:25] VITALS: BP 109/71; TEMP 96.9; O2SAT 93
[2025-09-01 05:48] LABS: PLATELET COUNT, AUTOMATED 454 10^3/uL (150-450)
[2025-09-01 06:14] LABS: CALCIUM LEVEL 8.9 MG/DL (8.5-10.1); CARBON DIOXIDE LEVEL 24 MMOL/L (20-31); CHLORIDE LEVEL 102 MMOL/L (98-107); CREATININE FOR GFR 0.60 MG/DL (0.55-1.30); GLOMERULAR FILTRATION RATE > 90.0 (>51); MAGNESIUM LEVEL 1.6 MG/DL (1.8-2.4); POTASSIUM SERUM 4.3 MMOL/L (3.5-5.1); SODIUM LEVEL 139 MMOL/L (136-145)
[2025-09-01 07:25] VITALS: BP 144/65; TEMP 97.1; O2SAT 99
[2025-09-01] MEDS: MAG SULF 1GM/100ML (MAG RUN) 1 GM in IV 1 EA IV SCH (08:52)
[2025-09-01 08:54] VITALS: BP 138/63
[2025-09-01] MEDS: INSULIN LISPRO (NovoLOG) PER UNIT SC SCH (08:54)
[2025-09-01] MEDS ORDERED: CEFD1CAP9 PO (10:57)
[2025-09-01] MEDS ORDERED: OXYB5TAB14 PO (10:57)
[2025-09-01] MEDS ORDERED: PHEN1TAB73 PO (10:57)
== END 2025-09-01 11:13 | disposition home or self-care (01) ==
LOC: M ED 11:43 → M ED INP 16:37 → M MS4PR 22:05
PROVIDERS: ADMIT Family Medicine; ATTEND Student in an Organized Health Care Education/Training Program
DX: N13.2 Hydronephrosis with renal and ureteral calculous obstruction (principal); I10 Essential (primary) hypertension; M79.7 Fibromyalgia; E78.5 Hyperlipidemia, unspecified; J44.9 Chronic obstructive pulmonary disease, unspecified; E11.9 Type 2 diabetes mellitus without complications; F32.A Depression, unspecified; F41.9 Anxiety disorder, unspecified; Z79.84 Long term (current) use of oral hypoglycemic drugs; Z79.2 Long term (current) use of antibiotics; Z79.899 Other long term (current) drug therapy; Z79.4 Long term (current) use of insulin
CPT/HCPCS: 36415; 51702; 52356; 74176; 76000; 80048; 80053; 80076; 81001; 83690; 83735; 84703; 85025; 85027; 85610; 85730; 94640; 94664; 96361; 96374; 96375; 96376; 99285; C1769; C2617; J0131; J0688; J1100; J1815; J1885; J2250; J2405; J3010; J3475; Q9967

== ENCOUNTER → 2025-08-30 | Outpatient (REF) | payer OTHER ==
[~2025-08-30] MED LIST changes: +ALEV220T22 PO; +MAGN400T35 PO; +OXYB5TAB14 PO; +PHEN1TAB73 PO; +SEMA0.257 SQ; +TRUL10IN SC
[2025-08-30 12:02] LABS: APPEARANCE, URINE HAZY (CLEAR); BACTERIA, URINE AUTO NEGATIVE (NEGATIVE); BILIRUBIN, URINE AUTO NEGATIVE (NEGATIVE); BLOOD, URINE BLOOD 1+ (NEGATIVE); GLUCOSE, URINE (UA) AUTO NEGATIVE (NEGATIVE); KETONE, URINE AUTO NEGATIVE (NEGATIVE); LEUKOCYTE ESTERASE, URINE AUTO NEGATIVE (NEGATIVE); MUCUS, URINE SMALL (NEGATIVE); NITRITE, URINE AUTO NEGATIVE (NEGATIVE); PROTEIN, URINE AUTO NEGATIVE (NEGATIVE); RBC, URINE AUTO 2 /HPF (0-3); SPECIFIC GRAVITY URINE AUTO 1.017 (1.002-1.035); SQUAMOUS EPITHELIAL CELL UR AU 5 /HPF (0-6); UROBILINOGEN, URINE AUTO 0.2 mg/dL (0.0-2.0); WBC, URINE AUTO 2 /HPF (0-3)
== END ==
LOC: M LAB REF 11:34
PROVIDERS: ATTEND Physician Assistant Medical
DX: N39.0 Urinary tract infection, site not specified (principal)

== ENCOUNTER → 2025-10-24 | Outpatient (REF) | payer OTHER ==
[~2025-10-24] MED LIST changes: +ALEV220T22 PO; +MAGN400T35 PO; +OXYB5TAB14 PO; +PHEN1TAB73 PO; +TRUL10IN SC
== END ==
LOC: M LAB REF 09:11
DX: B34.9 Viral infection, unspecified (principal)

== ENCOUNTER → 2025-11-17 | Outpatient (REF) | payer OTHER, MEDICAID ==
[2025-11-17 12:52] LABS: ESTIMATED AVERAGE GLUCOSE 209.0 MG/DL (60-110)
[2025-11-17 13:15] LABS: ALT/SGPT 42 U/L (7.0-40); AST/SGOT 31 U/L (<34); CALCIUM LEVEL 10.0 MG/DL (8.5-10.1); CARBON DIOXIDE LEVEL 29 MMOL/L (20-31); CHLORIDE LEVEL 105 MMOL/L (98-107); CHOLESTEROL LEVEL 145 MG/DL (<200); CHOLESTEROL RISK RATIO 2.38 (<5); CREATININE FOR GFR 0.62 MG/DL (0.55-1.30); GLOMERULAR FILTRATION RATE > 90.0 (>51); LDL CHOLESTEROL 50.7 MG/DL (<100); NON-HDL-C 84.1 MG/DL; POTASSIUM SERUM 5.1 MMOL/L (3.5-5.1); SODIUM LEVEL 140 MMOL/L (136-145); TRIGLYCERIDES LEVEL 167 MG/DL (<150)
== END ==
LOC: M LAB REF 12:14
PROVIDERS: ATTEND Student in an Organized Health Care Education/Training Program
DX: E11.69 Type 2 diabetes mellitus with other specified complication (principal)